=== PATIENT | female | born 1970 | race Caucasian/White ===

== ENCOUNTER → 2016-09-06 | Outpatient (CLI) | payer MEDICARE, OTHER ==
[2016-09-06 11:36] VITALS: BP 151/85; PULSE 80; RESP 14; TEMP 97.6; BMI 43.7
[2016-09-06 12:43] LABS: EKG EKG PERFORMED
[2016-09-06 13:49] LABS: ALT 36 U/L (9-52); AST 19 U/L (14-36); Alkaline Phosphatase 68 U/L (38-126); Anion Gap 10 mmol/L; Blood Urea Nitrogen 13 mg/dL (7-17); Calcium 9.9 mg/dL (8.4-10.2); Carbon Dioxide 29 mmol/L (22-30); Chloride 102 mmol/L (98-107); Cholesterol 175 mg/dL (<200); Glucose 94 mg/dL (74-99); HDL Cholesterol 70 mg/dL (40-60); Iron 108 ug/dL (37-170); Non-African American GFR(MDRD) 41 (>60 ml/min/1.73 sqM); Potassium 4.5 mmol/L (3.5-5.1); Sodium 141 mmol/L (137-145); Total Bilirubin 0.4 mg/dL (0.2-1.3); Total Protein 7.2 g/dL (6.3-8.2); Triglycerides 146 mg/dL (<150)
[2016-09-06 13:59] LABS: % Iron Saturation 33.2 % (20-50); Total Iron Binding Capacity 325 ug/dL (265-497)
[2016-09-06 14:02] LABS: CHCM 33.5; HCT 39.8 % (34.0-46.0); HDW 2.31; HGB 12.9 gm/dL (11.4-16.0); MCH 30.2 pg (25.0-35.0); MCHC 32.4 g/dL (31.0-37.0); Mean Platelet Volume 6.6; RBC 4.29 m/uL (3.80-5.40); RDW 12.1 % (11.5-15.5)
[2016-09-06 14:55] LABS: Vitamin B12 305 pg/mL (239-931)
[2016-09-06 15:53] LABS: Hemoglobin A1C 5.3 % (4.2-6.1)
--- NOTE | 2016-09-10 07:42 | P.PN ---
Progress Note - Text DATE OF CONSULTATION: 09/06/2016 CHIEF COMPLAINT: Initial bariatric assessment. HISTORY OF PRESENT ILLNESS: Earline Bermeo is a 46-year-old female who presents for the first time at the [facility]. With her 5 feet 5-3/4 inch frame, her ideal body weight is 149 pounds. She comes in weighing 268 pounds. She is 119 pounds overweight. Her body mass index is 43.7. She has been undergoing medical supervised weight loss for over several months. Her weight has continued to balloon despite adjustments of her caloric intake as well as increase protein intake. Separately she has gastroesophageal reflux disease. She reports osteoarthritis including of the lower back and bilateral knees. She developed hypertension including obstructive sleep apnea yet to be treated. Now she presents for further evaluation and management. Given the severity of her gastroesophageal reflux disease, she is looking into a Cherise-en-Y gastric bypass. She reports having history of chronic pain and is involved in a pain contract. She also reports a family history of morbid obesity. PAST MEDICAL HISTORY: 1. Chronic pain syndrome. 2. Gastroesophageal reflux disease. 3. Sleep disorder. 4. Scoliosis. 5. Degenerative joint disease of lower back. 6. Bilateral carpal tunnel disease. 7. Depression. PAST SURGICAL HISTORY: 1. Surgical implant of spinal cord stimulator. 2. Sinus surgery. 3. Removal of a lipoma. 4. Left rotator cuff surgery. 5. Upper endoscopy. MEDICATIONS: [place]. ALLERGIES: No latex allergies. SOCIAL HISTORY: No active tobacco use. She does have a previous tobacco use. is at bedside. FAMILY HISTORY: Pertinent for morbid obesity. REVIEW OF SYSTEMS: CONSTITUTIONAL: [place] body weight of 149 pounds for a 5 foot 3/4 inch frame. Present weight of 268 pounds. She is 119 pounds overweight. Body mass index of 43.7. HEENT: No reports of troubles with vision, hearing, or dysphagia. ENDOCRINE: No reports of diabetes or thyroid disorder. CARDIOVASCULAR: History of hypertension. No reports of palpitations or recent heart attack. RESPIRATORY: History of obstructive sleep apnea; however, not currently treated. Denies recent pneumonia. GASTROINTESTINAL: Has gastroesophageal reflux disease and recent upper endoscopy demonstrating hiatal hernia. No reports of dumping syndrome or diarrhea. MUSCULOSKELETAL: Has diffuse osteoarthritis including of the lower back. Has a pain stimulator as a result of lower back. NEURO: No reports of stroke or seizure disorder. PSYCH: History of bipolar disorder including depression. HEMATOLOGIC: No reports of easy bruising or bleeding. DIETARY HISTORY: Recent medical supervised weight loss over 4+ months. No weight loss identified. PHYSICAL EXAM: VITAL SIGNS: 97.6, 80, 14, 151/85, 5 foot 5, 3-1/4 inch frame, 268 pounds, body mass is 43.7. GENERAL: Well-developed pleasant female in no acute distress. HEENT: No scleral icterus. Extraocular movements grossly intact. Moist buccal mucosa. NECK: Supple without lymphadenopathy. CHEST: Nonlabored respirations with equal respirations. CARDIOVASCULAR: Regular rate and rhythm. ABDOMEN: Obese, soft, nontender, nondistended. EXTREMITIES: No cyanosis, or edema. NEURO: No focal or lateralizing signs. Cranial nerves II through XII grossly within normal limits. PSYCH: Appropriate affect. Alert and oriented in person, place, and time. LABS: White count normal at 8. Hemoglobin normal at 12.9. Creatinine elevated at 1.4. HDL elevated at 73, vitamin D low at 27.2. EKG was obtained, however, results are pending. ASSESSMENT: 1. Morbid obesity due to excess calories. 2. Body mass is a 43.7. 3. Gastroesophageal reflux disease. 4. Hypertensive heart disease. 5. Obstructive sleep apnea, untreated. 6. Degenerative joint disease, lower back, requiring spinal pain stimulator. 7. Chronic pain syndrome. 8. History of bipolar disorder. 9. History of depression. 10. Renal insufficiency, creatinine elevated 1.4. 11. Dietary surveillance and counseling. PLAN: 1. I recommend goal protein intake of approximately 65 to 75 grams daily. 2. Also recommend treatment for vitamin D deficiency. 3. Should her EKG come back with abnormalities, then will need a cardiac risk assessment. 4. Will need psych assessment with underlying history of depression, bipolar disorder. 5. Medical risk assessment is advised. 6. Surgical options between sleeve, band and Cherise-en-Y gastric bypass described in detail. She has elected for Cherise-en-Y gastric bypass to address her gastroesophageal reflux disease as well. 7. Referral to bariatric dietitian for gastrectomy-type diet. 8. Recommend follow-up in 3 to 4 weeks for complete review of her bariatric metabolic panel as well. Thank you very much for this kind consultation.
== END | disposition home or self-care (01) ==
LOC: BARWHC3 11:16
PROVIDERS: ATTEND Surgery Plastic and Reconstructive Surgery
DX: Z01.818 Encounter for other preprocedural examination (principal); E66.01 Morbid (severe) obesity due to excess calories; Z68.41 Body mass index [BMI] 40.0-44.9, adult; K21.9 Gastro-esophageal reflux disease without esophagitis; M17.0 Bilateral primary osteoarthritis of knee; M47.896 Other spondylosis, lumbar region; I10 Essential (primary) hypertension; G47.33 Obstructive sleep apnea (adult) (pediatric); G89.4 Chronic pain syndrome; M51.36 Other intervertebral disc degeneration, lumbar region; M41.9 Scoliosis, unspecified; G56.03 Carpal tunnel syndrome, bilateral upper limbs; F32.9 Major depressive disorder, single episode, unspecified; I11.9 Hypertensive heart disease without heart failure; N28.9 Disorder of kidney and ureter, unspecified; Z79.899 Other long term (current) drug therapy
CPT/HCPCS: 84425; 80061; 80053; 82607; 82728; 83036; 82746; 83540; 83550; 84443; 85027; 82306; 93005; 36415; G0463; 99201

== ENCOUNTER → 2016-12-26 | Outpatient (CLI) | payer MEDICARE, OTHER ==
[2016-12-26 13:25] VITALS: BP 147/92; PULSE 87; RESP 16; TEMP 97.3; BMI 43.0
[2016-12-31 07:20] LABS: Anabasine Urine <2.0 ng/mL (<2.0)
--- NOTE | 2017-01-25 10:19 | PN ---
DATE OF SERVICE: 12/26/2016 CHIEF COMPLAINT : Bariatric assessment. HISTORY OF PRESENT ILLNESS: Earline Bermeo is 46-year-old female who has been undergoing weight loss assessment at least from August of 2016. At her height of 5-foot 5-3/4 inch-frame today she comes in weighing 264 pounds. In fact, she has lost 4 pounds in 4 months. Body mass index reduced from 43.7 down to 43. She is still 115 pounds over weight. She has been undergoing medical supervised weight loss for well beyond 6 months with close caloric restriction as well as macro diet evaluation. Separately she does report intermittent right upper quadrant abdominal pain. Now she presents for further evaluation of bariatric procedures particularly for a Cherise-en-Y gastric bypass. She does have history of previous tobacco exposure and now she also presents for follow up as well. As a result of her morbid obesity, she has developed obstructive sleep apnea including hypertension as well as severity of lower back pain as well as bilateral knee pain. PAST MEDICAL HISTORY: 1. Chronic pain syndrome. 2. Gastroesophageal reflux disease. 3. Sleep disorder. 4. Scoliosis. 5. Degenerative joint disease of lower back. 6. Bilateral carpal tunnel disease. 7. Depression. PAST SURGICAL HISTORY: 1. Surgical implant of spinal cord stimulator. 2. Sinus surgery. 3. Removal of a lipoma. 4. Left rotator cuff surgery. 5. Upper endoscopy. MEDICATIONS: [place]. ALLERGIES: No latex allergies. SOCIAL HISTORY: No active tobacco use. She does have a previous tobacco use. is at bedside. FAMILY HISTORY: Pertinent for morbid obesity. REVIEW OF SYSTEMS: CONSTITUTIONAL: [place] body weight of 149 pounds. Present weight of 264 pounds. Weight loss of 4 pounds. Body mass index reduced from 43.7 down to 43. She is still 115 pounds overweight. HEENT: No reports of troubles with vision, hearing, or dysphagia. ENDOCRINE: No reports of diabetes or thyroid disorder. CARDIOVASCULAR: History of hypertension. No reports of palpitations or recent heart attack. RESPIRATORY: History of obstructive sleep apnea; however, not currently treated. Denies recent pneumonia. GASTROINTESTINAL: Has gastroesophageal reflux disease and recent upper endoscopy demonstrating hiatal hernia. No reports of dumping syndrome or diarrhea. MUSCULOSKELETAL: Has diffuse osteoarthritis including of the lower back. Has a pain stimulator as a result of lower back. NEURO: No reports of stroke or seizure disorder. PSYCH: History of bipolar disorder including depression. HEMATOLOGIC: No reports of easy bruising or bleeding. PHYSICAL EXAM: VITAL SIGNS: 97.3, 87, 16, 147/92, 5 feet 5-3/4 inch frame, 264 pounds. Body mass index of 43. ABDOMEN: Soft, tenderness noted in the right upper quadrant. No gross peritoneal signs. GENERAL: Well-developed pleasant female in no acute distress. HEENT: No scleral icterus. Extraocular movements grossly intact. Moist buccal mucosa. NECK: Supple without lymphadenopathy. CHEST: Nonlabored respirations with equal respirations. CARDIOVASCULAR: Regular rate and rhythm. EXTREMITIES: No cyanosis, or edema. NEURO: No focal or lateralizing signs. Cranial nerves II through XII grossly within normal limits. PSYCH: Appropriate affect. Alert and oriented in person, place, and time. LABS: Previous metabolic panel was reviewed consistent with hemoglobin normal 12.9. Creatinine was elevated at 1.4 HDL was elevated at 70. Vitamin D was mildly low at 27.2. ASSESSMENT: 1. Morbid obesity due to excess calories. 2. Body mass index reduced from 43.7 down to 43. 3. Obstructive sleep apnea. 4. Hypertensive heart disease. 5. Renal insufficiency secondary to hypertensive disease. 6. History of tobacco use. 7. Vitamin D deficiency. 8. History of chronic pain. 9. History of spine stimulator. PLAN: 1. I recommend a urine cotinine test. 2. Strict tobacco cessation was advised for at least 4 weeks preop. 3. We have gone over benefits and risks of her choice of a gastric bypass. A second generation bariatric consent form was reviewed including risk of bleeding , infection, nutritional deficiencies as well as leaks. 4. Inpatient hospitalization advised over 2 night. 5. DVT prophylaxis. 6. Antibiotic prophylaxis. 7. All of her questions were answered for which I have recommended close monitoring. 8. Again, she is to have urine cotinine test prior to proceeding with her procedure. ADDENDUM: Urine cotinine was indeed positive of recent tobacco use consistent with passive abstinence of 2 weeks. Recommend repeat after weeks of tobacco cessation. [facility]
== END | disposition home or self-care (01) ==
LOC: BARWHC3 12:12
PROVIDERS: ATTEND Surgery Plastic and Reconstructive Surgery
DX: Z01.818 Encounter for other preprocedural examination (principal); I10 Essential (primary) hypertension
CPT/HCPCS: G0480; G0463; 80323; 99211

== ENCOUNTER → 2016-12-26 | Outpatient (CLI) | payer MEDICARE, OTHER | END | disposition home or self-care (01) | LOC: LABWHC1 14:20 | PROVIDERS: ATTEND Surgery Plastic and Reconstructive Surgery | DX: Z53.9 Procedure and treatment not carried out, unspecified reason (principal) ==

== ENCOUNTER → 2016-12-31 | Outpatient (CLI) | payer MEDICARE, OTHER ==
[2016-12-31 13:01] VITALS: BMI 43.8
[2017-01-03 11:55] LABS: Anabasine Urine <2.0 ng/mL (<2.0)
== END | disposition home or self-care (01) ==
LOC: BARWHC3 09:14
PROVIDERS: ATTEND Surgery Plastic and Reconstructive Surgery
DX: E66.01 Morbid (severe) obesity due to excess calories (principal)
CPT/HCPCS: 97804; G0480; 80323

== ENCOUNTER → 2017-01-16 | Outpatient (CLI) | payer MEDICARE, OTHER ==
[2017-01-16 16:46] LABS: Basophils % (A) 0 %; CH 30.7; Eosinophils # (A) 0.1 k/uL (0-0.7); Eosinophils % (A) 1 %; HCT 39.5 % (34.0-46.0); HDW 2.34; HGB 13.1 gm/dL (11.4-16.0); Luc # (Auto) 0.22; Luc % (Auto) 2; Lymphocytes # (A) 3.2 k/uL (1.0-4.8); Lymphocytes % (A) 33 %; MCH 31.1 pg (25.0-35.0); MCHC 33.2 g/dL (31.0-37.0); MCV 93.6 fL (80.0-100.0); Mean Platelet Volume 6.6; Monocytes # (A) 0.4 k/uL (0-1.0); Monocytes % (A) 5 %; Neutrophils # (A) 5.6 k/uL (1.3-7.7); Neutrophils % (A) 58 %; RBC 4.22 m/uL (3.80-5.40); RDW 12.7 % (11.5-15.5); WBC 9.7 k/uL (3.8-10.6); WBC (Perox) 10.03
[2017-01-16 16:54] LABS: ALT 25 U/L (9-52); AST 17 U/L (14-36); Alkaline Phosphatase 69 U/L (38-126); Anion Gap 10 mmol/L; Blood Urea Nitrogen 14 mg/dL (7-17); Calcium 9.7 mg/dL (8.4-10.2); Carbon Dioxide 24 mmol/L (22-30); Chloride 106 mmol/L (98-107); Glucose 98 mg/dL (74-99); Non-African American GFR(MDRD) >60 (>60 ml/min/1.73 sqM); Potassium 4.1 mmol/L (3.5-5.1); Sodium 140 mmol/L (137-145); Total Bilirubin 0.4 mg/dL (0.2-1.3); Total Protein 7.4 g/dL (6.3-8.2)
== END | disposition home or self-care (01) ==
LOC: LABPAT 16:18
PROVIDERS: ATTEND Surgery Plastic and Reconstructive Surgery
DX: Z01.812 Encounter for preprocedural laboratory examination (principal)
CPT/HCPCS: 80053; 85025

== ENCOUNTER → 2017-01-16 | Outpatient (CLI) | payer MEDICARE, OTHER ==
[2017-01-16 15:21] VITALS: BMI 43.5
[2017-01-16 15:27] VITALS: BP 119/84; PULSE 60; RESP 16; TEMP 97.7
--- NOTE | 2017-01-30 14:52 | P.PN ---
Progress Note - Text DATE OF SERVICE: 01/16/2017 CHIEF COMPLAINT : Bariatric assessment. HISTORY OF PRESENT ILLNESS: Earline Bermeo is 46-year-old female who has undergone weight loss assessment from August of 2016. At her height of 5- foot 5-3/4 inch-frame today she comes in weighing 267 pounds. Body mass index is now 43.6. She is 118 pounds over weight. She has gained 3 pounds in 3 weeks. Today she comes in with worsening right upper quadrant pain despite having an ultrasound of the gallbladder that was negative for gallstones. She also reports fatty food intolerance. She has abstained from tobacco for at least 4 weeks. She has elected for a Cherise-en-Y gastric bypass. PAST MEDICAL HISTORY: 1. Chronic pain syndrome. 2. Gastroesophageal reflux disease. 3. Sleep disorder. 4. Scoliosis. 5. Degenerative joint disease of lower back. 6. Bilateral carpal tunnel disease. 7. Depression. PAST SURGICAL HISTORY: 1. Surgical implant of spinal cord stimulator. 2. Sinus surgery. 3. Removal of a lipoma. 4. Left rotator cuff surgery. 5. Upper endoscopy. MEDICATIONS: [place]. ALLERGIES: No latex allergies. SOCIAL HISTORY: No active tobacco use. She does have a previous tobacco use. is at bedside. FAMILY HISTORY: Pertinent for morbid obesity. REVIEW OF SYSTEMS: CONSTITUTIONAL: At her height of 5-foot 5-3/4 inch-frame today she comes in weighing 267 pounds. Body mass index is now 43.6. She is 118 pounds over weight. She has gained 3 pounds in 3 weeks. HEENT: No reports of troubles with vision, hearing, or dysphagia. ENDOCRINE: No reports of diabetes or thyroid disorder. CARDIOVASCULAR: History of hypertension. No reports of palpitations or recent heart attack. RESPIRATORY: History of obstructive sleep apnea; however, not currently treated. Denies recent pneumonia. GASTROINTESTINAL: Has gastroesophageal reflux disease and recent upper endoscopy demonstrating hiatal hernia. No reports of dumping syndrome or diarrhea. Has severe fatty food intolerance. MUSCULOSKELETAL: Has diffuse osteoarthritis including of the lower back. Has a pain stimulator as a result of lower back. NEURO: No reports of stroke or seizure disorder. PSYCH: History of bipolar disorder including depression. HEMATOLOGIC: No reports of easy bruising or bleeding. PHYSICAL EXAM: VITAL SIGNS: 5 feet 5-3/4 inch frame, 267 pounds. Body mass index of 43.6. Vital Signs Temp 97.7 F 01/16/17 15:19 Pulse 60 01/16/17 15:19 Resp 16 01/16/17 15:19 BP 119/84 01/16/17 15:19 Pulse Ox ABDOMEN: Soft, tenderness noted in the right upper quadrant. No palpable incisional hernia. GENERAL: Well-developed pleasant female in no acute distress. HEENT: No scleral icterus. Extraocular movements grossly intact. Moist buccal mucosa. NECK: Supple without lymphadenopathy. CHEST: Nonlabored respirations with equal respirations. CARDIOVASCULAR: Regular rate and rhythm. EXTREMITIES: No cyanosis, or edema. NEURO: No focal or lateralizing signs. Cranial nerves II through XII grossly within normal limits. PSYCH: Appropriate affect. Alert and oriented in person, place, and time. ASSESSMENT: 1. Morbid obesity due to excess calories. 2. Body mass index 43.6. 3. Obstructive sleep apnea. 4. Hypertensive heart disease. 5. Renal insufficiency secondary to hypertensive disease. 6. History of tobacco use in remission. 7. Vitamin D deficiency. 8. History of chronic pain. 9. History of spine stimulator. 10. Chronic cholecystitis. 11. Right upper quadrant pain. PLAN: 1. She is completing a tobacco screen. 2. She has severe right upper quadrant pain. Recommend cholecystectomy for chronic cholecystitis. 3. An 8-page second generation bariatric consent form was reviewed in detail including risks of leak, bleeding, infection, and stricture. He main concern today includes activities which may resumed after 4 to 6 weeks of recovery. Also prescription for the [facility] was described. 4. Inpatient hospitalization advised over 2 night. 5. DVT prophylaxis. 6. Antibiotic prophylaxis.
== END | disposition home or self-care (01) ==
LOC: BARWHC3 15:06
PROVIDERS: ATTEND Surgery Plastic and Reconstructive Surgery
DX: Z01.818 Encounter for other preprocedural examination (principal); E66.01 Morbid (severe) obesity due to excess calories; G47.33 Obstructive sleep apnea (adult) (pediatric); I11.9 Hypertensive heart disease without heart failure; N28.9 Disorder of kidney and ureter, unspecified; E55.9 Vitamin D deficiency, unspecified; R10.11 Right upper quadrant pain; G89.4 Chronic pain syndrome; K21.9 Gastro-esophageal reflux disease without esophagitis; M41.9 Scoliosis, unspecified; F32.9 Major depressive disorder, single episode, unspecified; Z68.41 Body mass index [BMI] 40.0-44.9, adult
CPT/HCPCS: 99211

== ENCOUNTER 2017-02-11 07:22 | Inpatient (IN) | payer MEDICARE, OTHER ==
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
[~2017-02-11 07:22] MED LIST: ACETAMINOPHEN IV (For NPO) 1,000 MG in EMPTY BAG 1 BAG IVPB ONE; CHLORHEXIDINE GLUCONATE 15 ML CUP MUCOUS MEM ONE; DEXAMETHASONE SOD PHOSPHATE 10 MG/ML 1 ML VIAL IV ONE; ENOXAPARIN 40 MG/0.4 ML SYRINGE SQ STA; HYDROmorphone 1 MG/ML 1 ML SYRINGE IVP PRN; LIDOCAINE 1% 20 ML VIAL (10MG/ML) FOR IV START INTRADERMA PRN; PANTOPRAZOLE 40 MG/10 ML VIAL IV STA; SCOPOLAMINE 1.5MG/72HR PATCH TRANSDERM ONE; ceFAZolin 3 GM in SODIUM CHLORIDE 0.9% 100 ML IVPB ONE
[2017-02-11] MEDS: LACTATED RINGERS 1,000 ML IV SCH (07:58)
[2017-02-11] MEDS: ONDANSETRON 4 MG/2 ML VIAL IVP ONE ×2 (08:08→12:01)
--- NOTE | 2017-02-11 08:52 | P.HPADDEND ---
H&P Addendum H&P Addendum Date: 02/11/17 Patient comes in with history of persistent right upper quadrant abdominal pain especially worse after fatty greasy foods. We'll proceed with cholecystectomy with gastric bypass. All questions were answered and addressed with family.
[2017-02-11] MEDS ORDERED: BUPIVACAIN-EPI 0.5%-1:200,000 30 ML VIAL SQ ONE (09:39)
[2017-02-11] MEDS ORDERED: LACTATED RINGERS 1,000 ML IV ONE (10:02)
[2017-02-11] MEDS ORDERED: ACETAMINOPHEN IV (For NPO) 1,000 MG in EMPTY BAG 1 BAG IVPB ONE (12:03)
[2017-02-11] MEDS ORDERED: NALOXONE 0.4 MG/ML 1 ML VIAL IV PRN (12:03)
[2017-02-11] MEDS ORDERED: SIMETHICONE 40 MG/0.6 ML DROPS 2,000 MG/30 ML BOTTLE PO PRN (12:03)
[2017-02-11] MEDS ORDERED: HYOSCYAMINE ORAL DROPS 1.875 MG/15 ML BOTTLE PO PRN (12:03)
[2017-02-11] MEDS ORDERED: diphenhydrAMINE 50 MG/ML 1 ML VIAL IVP PRN (12:03)
[2017-02-11] MEDS ORDERED: diphenhydrAMINE 50 MG/ML 1 ML VIAL IVP ONE (12:05)
[2017-02-11] MEDS ORDERED: PROMETHAZINE INJ 25 MG/ML 1 ML VIAL IVPB ONE (12:10)
--- NOTE | 2017-02-11 12:53 | P.OP ---
Date of Procedure: 02/11/17 Preoperative Diagnosis: Postoperative Diagnosis: Procedure(s) Performed: Implants: Indications for Procedure: Operative Findings: Description of Procedure: SURGEON: LEANA TAPIA MD MEDICAL FRONT DESK COORDINATOR: 1. JENIFER PATEL 2. RIOS DEVRIES PRE-OPERATIVE DIAGNOSES: 1. Morbid obesity due to excess calories. 2. Body mass index 43.6. 3. Obstructive sleep apnea. 4. Hypertensive heart disease. 5. Renal insufficiency secondary to hypertensive disease. 6. History of tobacco use in remission. 7. Vitamin D deficiency. 8. History of chronic pain. 9. History of spine stimulator. 10. Chronic cholecystitis. 11. Right upper quadrant pain. POSTOPERATIVE DIAGNOSES: 1. Morbid obesity due to excess calories. 2. Body mass index 43.6. 3. Obstructive sleep apnea. 4. Hypertensive heart disease. 5. Renal insufficiency secondary to hypertensive disease. 6. History of tobacco use in remission. 7. Vitamin D deficiency. 8. History of chronic pain. 9. History of spine stimulator. 10. Chronic cholecystitis. 11. Right upper quadrant pain. OPERATION: 1. Laparoscopic Cherise-en-Y gastric bypass, 125 cm antecolic antegastric Cherise limb with 25 mm Orvil. 3. Intraoperative esophagogastrojejunoscopy. ANESTHESIA: General with 30 mL 0.50% Marcaine with epinephrine. ESTIMATED BLOOD LOSS: 20 mL SPECIMENS SENT: None. COMPLICATIONS: None. INDICATIONS: Earline Bermeo is 46-year-old female who has undergone weight loss assessment from August of 2016. At her height of 5-foot 5-3/4 inch-frame today she comes in weighing 260 pounds. Body mass index is now down from 43.6 to 42.2. She is 111 pounds over weight. She has lost 7 pounds from a two-week low-calorie high-protein diet. She has developed obstructive sleep apnea, osteoarthritis of the hips and knees, and hypertension from her obesity. She comes in with history of right upper quadrant pain exacerbated by fatty foods. She has abstained from tobacco for over 4 weeks. She has elected for a Cherise-en- Y gastric bypass. Benefits and risks of the procedure, including increased risk for leak, surgical complications, nausea, vomiting, gastrointestinal anastomotic stricture, were described at length via a second-generation bariatric consent form. She had given informed consent. DESCRIPTION: The patient was brought into the operating room theater. She was placed on a split leg table. Preoperatively she had received Lovenox subcutaneously for DVT prophylaxis. Additionally she had undergone Peridex oral solution as an oral decontaminant. After general induction, the abdomen was prepped and draped in standard sterile fashion. A Sanders catheter was placed. At her height of approximately 5 feet 5.75 inch, her height from her xiphoid to her umbilicus was 18 cm. Initial attention was brought along the left upper quadrant, whereby a zero-degree 10 mm trocar laparoscopic trocar entry was performed at the left upper abdomen. The abdominal cavity was entered. A 12-mm port was placed along the left lateral abdominal wall. Next a 12 mm port was placed approximately 15 cm distal and off to the left of midline for placement of the camera port. Additional two 12 mm trocars were placed along the right upper abdomen at the right costal margin including the right midclavicular line in a V-type fashion. Diagnostic laparoscopy demonstrated no injury to the bowel, viscera or mesentery. No abdominal adhesions were identified. The small bowel was unremarkable in appearance. The liver surface was smooth including along the edge was sharp consistent with a 2 week high-protein low caloric diet. No large diaphragmatic hiatal hernia was identified. The ligament of Treitz was identified and measured 60 cm antegrade. The jejunum was divided at this point. The biliopancreatic limb was held in place by the teacher's assistant. The blind jejunal limb was marked using a Wade drain and 2-0 silk Endo Stitch.. The Cherise limb was then measured 125 cm distally. Her mesentery was short preventing tension of the jejunojejunostomy at 150 cm Cherise limb. At 125 cm along the anterior mesenteric border of the Cherise limb, a jejunojejunostomy was proposed whereby enterotomies were created along the biliopancreatic limb including the Cherise limb. A bidirectional fire was performed whereby from the surgeon's end a 45 mm mata load was fired. From the teacher's assistant's end a separate 45 mm firing had occurred, creating a 90 mm jejunojejunostomy. The defect was then closed using a 60 mm mata load. The jejunojejunostomy was found to be hemostatic. Attention was now brought to the creation of the gastrojejunostomy. The transverse mesocolon was cleaved using a Sonicision. Placement of a medium-sized Angie liver retractor was used to elevate the left lobe of the liver for greater visualization of the upper abdomen, particularly the superior pole of the stomach. The Angie liver retractor was held in place using an iron hospitality internship. Along the lesser curvature of the stomach between the second and third veins, dissection was made along the retrogastric space to allow first firing of the Covidien Tri-Staple purple load. Once adequately mobilized, an initial firing using a 60 mm purple load was performed perpendicular to the lesser curvature of the stomach. To completely divide the pouch from the remnant stomach, two 60 mm purple loads were fired towards the angle of His followed by a 45 mm purple load. Care was taken to avoid any creation of gastric gastric fistulas. Once the stomach was completely divided, attention was brought to placement of the Orvil. The patient was Mallampati 1. Using the help of the nurse sports editor, a 25 mm Orvil was placed along the posterior oropharynx and advanced into the pouch. The Orvil was placed anterior to the staple line. A gastrotomy was created for removal of the tubing. Once the sutures were encountered these were divided in the tubing and Orvil were disconnected. Using aseptic technique all ports and instruments and gloves were exchanged after handling of the Orvil tubing. Patient was then placed in reverse Trendelenburg. As the Orvil had been placed, the blind jejunal limb was brought proximally into the upper abdomen. No tension or torsion was found upon the Cherise limb, which was brought along the upper abdomen. The blind jejunal limb was opened using a cordless Harmonic scalpel. The 25mm EEA stapler was brought through the anterior lateral port site from the teacher's assistant's end. The EEA stapler was brought through the open jejunal limb and its needle was deployed at the antimesenteric border where the anvil were mated for approximately 1 minute upon firing. The stapler was removed. Donuts were found to be intact. The open jejunal limb defect was closed using a 60 mm mata load. No redundant jejunal limb was allow to decrease risk of candycane syndrome. Closure of the mesenteric defects was performed, initially of the Lugo defect using 2-0 silk on an Endo Stitch and a Lapra-Ty. Attention was brought to closure of the jejunojejunostomy mesenteric defect, also closed in a similar fashion. I then went to the head of the bed to perform the esophagogastrojejunoscopy and a leak test. An Olympus gastroscope was passed along the posterior oropharynx. The scope was passed down to the proximal portion of the pouch, whereby no active bleeding was encountered. Excellent visualization of the gastrojejunostomy anastomosis, including the Cherise limb was encountered for which endoscopic image was obtained. The anastomosis was found to be patent. The gastrointestinal tract was desufflated. No evidence of intraoperative leak was encountered. I then went back to the bedside of the patient, whereby with coordinated effort of the teacher's assistant, the fluid from the leak test was aspirated from the upper abdominal cavity. Tisseel was placed circumferentially over the anastomosis. Attention was brought to her gallbladder whereby she had redundancy of the gallbladder infundibulum including less than ideal visualization of the cystic structures. For concern and to prevent injury, her cholecystectomy was deferred. All instruments and pneumoperitoneum were evacuated from the abdominal cavity. The port correlating with the EEA stapler device was copiously irrigated with 3 L of warm normal saline solution. The fascial defect was closed using a Papito Siddiqui and 0 Vicryl in a [id number] fashion. The incisions were also cleansed with hydrogen peroxide. The rest of incisions were reapproximated using 3-0 Vicryl for deep subcutaneous tissue and dermis followed by 4-0 Monocryl in a running subcuticular fashion. Dermabond was applied to the skin. At the end of the procedure, needle, sponge and instrument count had been verified correct by the neurosurgical nurse. She had tolerated the procedure well and was taken to the postanesthesia unit in stable condition. FINDINGS: 1. 25 mm Orvil for gastrojejunal anastomosis. 2. Negative intraoperative esophagogastrojejunoscopy leak test. 3. Approximately 3 -60mm purple and 1 - 45 mm purple staplers used for creation of her gastric pouch. 4. Cherise limb of 125 cm, shortened from 150 cm to avoid tension of her jejunojejunostomy. 5. Length of xiphoid to umbilicus of 18 cm
[2017-02-11 14:51] VITALS: BMI 40.8
[2017-02-11] MEDS: ALBUTEROL NEBULIZED 2.5 MG/3 ML INHALATION SCH ×2 (15:57→19:45)
[2017-02-11] MEDS: HYDROmorphone 1 MG/ML 1 ML SYRINGE IVP PRN ×3 (16:14→23:48)
[2017-02-11] MEDS ORDERED: TRIMETHOBENZAMIDE 100 MG/ML 2 ML VIAL IM STA (18:09)
[2017-02-11] MEDS ORDERED: SCOPOLAMINE 1.5MG/72HR PATCH TRANSDERM STA (18:50)
--- NOTE | 2017-02-11 19:18 | P.PN ---
Progress Note - Text Patient seen and evaluated on the floor. She had severe postoperative nausea and vomiting. She did not receive a patch this morning. She had hematemesis as a result. Recommend simethicone including Levsin. Also recommend Tigan IM and scopolamine patch. Ice chips in the interim for severe postoperative nausea and vomiting.
[2017-02-11] MEDS: AMPICILLIN-SULBACTAM 3 GM in SODIUM CHLORIDE 0.9% 100 ML IVPB SCH (19:23)
[2017-02-11] MEDS ORDERED: DEXAMETHASONE SOD PHOSPHATE 10 MG/ML 1 ML VIAL IV STA (19:59)
[2017-02-11] MEDS: 0.9% NACL WITH KCL 20 MEQ/L 1,000 ML IV SCH ×2 (20:44)
[2017-02-11] MEDS: METOCLOPRAMIDE 5 MG/ML 2 ML VIAL IVP SCH (23:02)
[2017-02-11] MEDS: HYOSCYAMINE ORAL DROPS 1.875 MG/15 ML BOTTLE PO SCH (23:06)
[2017-02-11] MEDS: SIMETHICONE 40 MG/0.6 ML DROPS 2,000 MG/30 ML BOTTLE PO SCH (23:17)
[2017-02-12 00:19] LABS: Basophils % (A) 0 %; CH 30.8; CHCM 32.4; Eosinophils % (A) 0 %; HCT 35.1 % (34.0-46.0); HGB 11.1 gm/dL (11.4-16.0); Luc # (Auto) 0.03; Luc % (Auto) 0; Lymphocytes # (A) 0.5 k/uL (1.0-4.8); Lymphocytes % (A) 4 %; MCH 30.3 pg (25.0-35.0); MCHC 31.7 g/dL (31.0-37.0); MCV 95.5 fL (80.0-100.0); Monocytes # (A) 0.3 k/uL (0-1.0); Monocytes % (A) 2 %; Neutrophils # (A) 12.1 k/uL (1.3-7.7); Neutrophils % (A) 93 %; RBC 3.67 m/uL (3.80-5.40); RDW 12.9 % (11.5-15.5); WBC (Perox) 13.36
[2017-02-12 00:29] LABS: ALT 41 U/L (9-52); AST 31 U/L (14-36); Alkaline Phosphatase 58 U/L (38-126); Anion Gap 11 mmol/L; Blood Urea Nitrogen 16 mg/dL (7-17); Calcium 8.5 mg/dL (8.4-10.2); Carbon Dioxide 19 mmol/L (22-30); Chloride 105 mmol/L (98-107); Glucose 218 mg/dL (74-99); Non-African American GFR(MDRD) >60 (>60 ml/min/1.73 sqM); Potassium 4.9 mmol/L (3.5-5.1); Sodium 135 mmol/L (137-145); Total Bilirubin 0.4 mg/dL (0.2-1.3); Total Protein 6.1 g/dL (6.3-8.2)
[2017-02-12] MEDS: AMPICILLIN-SULBACTAM 3 GM in SODIUM CHLORIDE 0.9% 100 ML IVPB SCH (02:00)
[2017-02-12] MEDS: HYDROmorphone 1 MG/ML 1 ML SYRINGE IVP PRN (02:54)
[2017-02-12] MEDS: 0.9% NACL WITH KCL 20 MEQ/L 1,000 ML IV SCH ×2 (02:54→05:45)
[2017-02-12] MEDS: METOCLOPRAMIDE 5 MG/ML 2 ML VIAL IVP SCH ×3 (05:49→16:56)
[2017-02-12] MEDS: HYOSCYAMINE ORAL DROPS 1.875 MG/15 ML BOTTLE PO SCH ×3 (05:52→16:56)
[2017-02-12] MEDS: SIMETHICONE 40 MG/0.6 ML DROPS 2,000 MG/30 ML BOTTLE PO SCH ×3 (05:53→16:56)
[2017-02-12] MEDS: LACTATED RINGERS 1,000 ML IV SCH (06:46)
[2017-02-12 07:32] LABS: Basophils % (A) 0 %; CH 30.7; CHCM 32.7; Eosinophils % (A) 0 %; HCT 31.4 % (34.0-46.0); HDW 2.33; HGB 10.1 gm/dL (11.4-16.0); Luc # (Auto) 0.05; Luc % (Auto) 0; Lymphocytes # (A) 0.8 k/uL (1.0-4.8); Lymphocytes % (A) 6 %; MCH 30.3 pg (25.0-35.0); MCHC 32.1 g/dL (31.0-37.0); MCV 94.5 fL (80.0-100.0); Mean Platelet Volume 6.9; Monocytes # (A) 0.6 k/uL (0-1.0); Monocytes % (A) 5 %; Neutrophils # (A) 10.4 k/uL (1.3-7.7); Neutrophils % (A) 88 %; RBC 3.32 m/uL (3.80-5.40); RDW 12.9 % (11.5-15.5); WBC 11.8 k/uL (3.8-10.6); WBC (Perox) 12.04
[2017-02-12 07:49] LABS: Anion Gap 8 mmol/L; Blood Urea Nitrogen 14 mg/dL (7-17); Calcium 8.3 mg/dL (8.4-10.2); Carbon Dioxide 24 mmol/L (22-30); Chloride 106 mmol/L (98-107); Magnesium 1.9 mg/dL (1.6-2.3); Non-African American GFR(MDRD) >60 (>60 ml/min/1.73 sqM); Phosphorous 2.4 mg/dL (2.5-4.5); Potassium 4.6 mmol/L (3.5-5.1); Sodium 138 mmol/L (137-145)
[2017-02-12] MEDS ORDERED: ESOMEPRAZOLE 20 MG in SODIUM CHLORIDE 0.9% 50 ML IVPB SCH (09:00)
[2017-02-12] MEDS ORDERED: PANTOPRAZOLE 40 MG/10 ML VIAL IV SCH (09:00)
[2017-02-12] MEDS: ALBUTEROL NEBULIZED 2.5 MG/3 ML INHALATION SCH ×4 (09:14→21:25)
[2017-02-12] MEDS: ONDANSETRON 4 MG/2 ML VIAL IVP PRN ×3 (09:30→21:47)
[2017-02-12] MEDS ORDERED: NALOXONE 0.4 MG/ML 1 ML VIAL IV PRN (10:28)
[2017-02-12] MEDS: ENOXAPARIN 40 MG/0.4 ML SYRINGE SQ SCH (10:40)
[2017-02-12] MEDS ORDERED: DEXAMETHASONE SOD PHOSPHATE 10 MG/ML 1 ML VIAL IV STA (10:43)
[2017-02-12] MEDS ORDERED: TRIMETHOBENZAMIDE 100 MG/ML 2 ML VIAL IM STA (10:44)
[2017-02-12] MEDS: fentaNYL PCA 300 MCG/30 ML SYRINGE IV PRN ×2 (11:34→22:20)
--- NOTE | 2017-02-12 13:27 | P.PN ---
Progress Note - Text Patient seen and evaluated. Overnight events including severe post-op nausea and vomiting with resultant hematemesis discussed with covering provider, Dr. Escobar. Patient still reports nausea. Vital signs are stable. Recommend discontinuing dilaudid and switch to fentanyl. Correction of electrolytes. Continue on NPO for now. Additional anti-emetics.
[2017-02-12] MEDS: 1: MVI, ADULT NO.4 WITH VIT K 10 ML, THIAMINE 100 MG, FOLIC ACID 1 MG, POTASSIUM CHLORID IV SCH ×6 (16:50)
[2017-02-12] MEDS ORDERED: SODIUM CHLORIDE 0.9% 1,000 ML BAG ONE (16:50)
[2017-02-13] MEDS: SIMETHICONE 40 MG/0.6 ML DROPS 2,000 MG/30 ML BOTTLE PO SCH ×4 (00:04→17:52)
[2017-02-13] MEDS: HYOSCYAMINE ORAL DROPS 1.875 MG/15 ML BOTTLE PO SCH ×4 (00:05→17:52)
[2017-02-13] MEDS: METOCLOPRAMIDE 5 MG/ML 2 ML VIAL IVP SCH ×4 (00:06→17:53)
[2017-02-13] MEDS: 1: MVI, ADULT NO.4 WITH VIT K 10 ML, THIAMINE 100 MG, FOLIC ACID 1 MG, POTASSIUM CHLORID IV SCH ×12 (04:51→05:00)
[2017-02-13] MEDS ORDERED: SODIUM CHLORIDE 0.9% 1,000 ML BAG ONE (04:51)
[2017-02-13] MEDS: LACTATED RINGERS 1,000 ML IV SCH (06:23)
[2017-02-13 07:17] LABS: CH 30.9; CHCM 32.8; HDW 2.31; MCH 30.7 pg (25.0-35.0); MCHC 32.4 g/dL (31.0-37.0); MCV 94.8 fL (80.0-100.0); Mean Platelet Volume 7.4; RBC 2.63 m/uL (3.80-5.40); RDW 13.3 % (11.5-15.5); WBC 10.7 k/uL (3.8-10.6)
[2017-02-13 07:25] LABS: HGB 8.1 gm/dL (11.4-16.0)
[2017-02-13 07:37] LABS: Anion Gap 5 mmol/L; Blood Urea Nitrogen 14 mg/dL (7-17); Calcium 8.5 mg/dL (8.4-10.2); Carbon Dioxide 25 mmol/L (22-30); Chloride 107 mmol/L (98-107); Glucose 100 mg/dL (74-99); Non-African American GFR(MDRD) >60 (>60 ml/min/1.73 sqM); Potassium 4.4 mmol/L (3.5-5.1); Sodium 137 mmol/L (137-145)
[2017-02-13 07:39] VITALS: TEMP 98.2
[2017-02-13] MEDS ORDERED: BISACODYL 5 MG TABLET.DR PO PRN (08:00)
[2017-02-13] MEDS: ALBUTEROL NEBULIZED 2.5 MG/3 ML INHALATION SCH ×3 (08:50→15:28)
[2017-02-13] MEDS: ENOXAPARIN 40 MG/0.4 ML SYRINGE SQ SCH (09:22)
--- NOTE | 2017-02-13 10:23 | P.PN ---
Progress Note - Text Patient reevaluated this evening. Her nausea is improving. No further vomiting. She reports appetite. We'll start bariatric liquid in the morning.
[2017-02-13] MEDS ORDERED: BISACODYL 10 MG SUPP RECTAL STA (10:38)
[2017-02-13] MEDS: SODIUM PHOSPHATE 10 MMOL in SODIUM CHLORIDE 0.9% 250 ML IVPB SCH ×2 (12:01→15:20)
[2017-02-13] MEDS: fentaNYL PCA 300 MCG/30 ML SYRINGE IV PRN ×2 (13:44→18:11)
[2017-02-13 15:02] LABS: CH 30.3; CHCM 32.8; HCT 24.2 % (34.0-46.0); HDW 2.38; HGB 8.2 gm/dL (11.4-16.0); MCH 31.5 pg (25.0-35.0); MCHC 33.8 g/dL (31.0-37.0); MCV 93.1 fL (80.0-100.0); Mean Platelet Volume 7.2; RDW 12.8 % (11.5-15.5); WBC 10.8 k/uL (3.8-10.6)
[2017-02-13 18:44] VITALS: BP 135/66; PULSE 78; RESP 18
== END 2017-02-13 20:01 | disposition home or self-care (01) | DRG 620 ==
LOC: 2ORWHC 07:22 → 3SUR 11:50
PROVIDERS: ADMIT Surgery Plastic and Reconstructive Surgery; ATTEND Surgery Plastic and Reconstructive Surgery
PROC: 0DJ08ZZ Inspection of Upper Intestinal Tract, Via Natural or Artificial Opening Endoscopic (ICD-10-PCS; 2017-02-11)
PROC: 0D164ZA Bypass Stomach to Jejunum, Percutaneous Endoscopic Approach (ICD-10-PCS; principal; 2017-02-11 08:45)
DX: E66.01 Morbid (severe) obesity due to excess calories (principal); K92.0 Hematemesis; I11.9 Hypertensive heart disease without heart failure; K81.1 Chronic cholecystitis; G62.9 Polyneuropathy, unspecified; M41.9 Scoliosis, unspecified; E55.9 Vitamin D deficiency, unspecified; G47.33 Obstructive sleep apnea (adult) (pediatric); G89.4 Chronic pain syndrome; K21.9 Gastro-esophageal reflux disease without esophagitis; M16.0 Bilateral primary osteoarthritis of hip; N28.9 Disorder of kidney and ureter, unspecified; F32.9 Major depressive disorder, single episode, unspecified; G56.03 Carpal tunnel syndrome, bilateral upper limbs; M47.9 Spondylosis, unspecified; M51.36 Other intervertebral disc degeneration, lumbar region; R11.2 Nausea with vomiting, unspecified; M17.0 Bilateral primary osteoarthritis of knee; Z68.41 Body mass index [BMI] 40.0-44.9, adult; Z79.899 Other long term (current) drug therapy; Z87.891 Personal history of nicotine dependence
CPT/HCPCS: 80048; 80051; 80053; 81025; 82310; 82565; 83735; 84100; 84484; 84520; 85025; 85027; 86850; 86900; 86901; 93005; 94640; 94760; 94762

== ENCOUNTER → 2017-02-15 | Outpatient (CLI) | payer MEDICARE, OTHER ==
[2017-02-15 12:15] VITALS: BP 118/70; PULSE 85; TEMP 98.2; BMI 42.4
--- NOTE | 2017-03-10 13:40 | P.PN ---
Progress Note - Text DATE OF SERVICE: 02/15/2017 CHIEF COMPLAINT : Bariatric assessment. HISTORY OF PRESENT ILLNESS: Earline Bermeo is 46-year-old female who is status post gastric bypass on 02/11/2017. She is postoperative day #4. At her height of 5-foot 5-3/4 inch-frame today she comes in weighing 260 pounds. Her body mass index is reduced to 42.4. She has lost 7 pounds. Her body mass index was 43.6. She is 111 pounds over weight. She denies any fevers or chills. She reports constipation with some blood. She denies any swelling of the legs. She started her protein shakes. PHYSICAL EXAM: VITAL SIGNS: 5 feet 5-3/4 inch frame, 260 pounds. Body mass index of 42.4. Vital Signs 02/15/17 12:12 Temperature 98.2 F Pulse Rate 85 Blood Pressure 118/70 ABDOMEN: Soft, mild distention. Some tenderness. No palpable incisional hernia. No signs of infection. GENERAL: Well-developed pleasant female in no acute distress. HEENT: No scleral icterus. Extraocular movements grossly intact. Moist buccal mucosa. NECK: Supple without lymphadenopathy. CHEST: Nonlabored respirations with equal respirations. CARDIOVASCULAR: Regular rate and rhythm. EXTREMITIES: No cyanosis, or edema. NEURO: No focal or lateralizing signs. Cranial nerves II through XII grossly within normal limits. PSYCH: Appropriate affect. Alert and oriented in person, place, and time. ASSESSMENT: 1. Morbid obesity due to excess calories. 2. Body mass index 43.6 down to 42.4. 3. Obstructive sleep apnea. 4. Hypertensive heart disease. 5. Renal insufficiency secondary to hypertensive disease. 6. History of tobacco use in remission. 7. Vitamin D deficiency. 8. History of chronic pain. 9. History of spine stimulator. 10. Status post Cherise-en-Y gastric bypass. PLAN: 1. Recommend continued IV fluid hydration. 2. Continue protein shakes. 3. Follow-up in one week.
== END | disposition home or self-care (01) ==
LOC: BARWHC3 09:38
PROVIDERS: ATTEND Surgery Plastic and Reconstructive Surgery
DX: E66.01 Morbid (severe) obesity due to excess calories (principal); G47.33 Obstructive sleep apnea (adult) (pediatric); I11.0 Hypertensive heart disease with heart failure; N28.9 Disorder of kidney and ureter, unspecified; E55.9 Vitamin D deficiency, unspecified; Z68.41 Body mass index [BMI] 40.0-44.9, adult; Z98.84 Bariatric surgery status; Z87.891 Personal history of nicotine dependence
CPT/HCPCS: 99211

== ENCOUNTER → 2017-03-06 | Outpatient (CLI) | payer MEDICARE, OTHER ==
--- NOTE | 2017-03-06 16:02 | CT ---
EXAMINATION TYPE: CT abdomen pelvis w con DATE OF EXAM: 03/06/2017 COMPARISON: NONE HISTORY: LLQ pain. Hx of gastric bypass. CT DLP: 1545.3 mGycm Automated exposure control for dose reduction was used. TECHNIQUE: Helical acquisition of images from the lung bases through the pelvis have been completed. CONTRAST: Performed with Oral Contrast and with IV Contrast, patient injected with 100 mL of Omnipaque 300. FINDINGS: Patient is status post gastric bypass surgery with Cherise-en-Y. LUNG BASES: No significant abnormality is appreciated. AORTA: No significant abnormality is appreciated. LIVER/GB: The liver is enlarged. Some low-attenuation is suspected suggestive of hepatic steatosis. G allbladder is normal. PANCREAS: No significant abnormality is seen. SPLEEN: Enlarged ADRENALS: No significant abnormality is seen. KIDNEYS: No significant abnormality is seen. REPRODUCTIVE ORGANS: Left adnexal cyst likely ovarian measures approximately 4 cm. BOWEL: No significant abnormality is seen. FREE AIR: No Free Air visible. ASCITES: None visible. PELVIC ADENOPATHY: None visualized. RETROPERITONEAL ADENOPATHY: No Retroperitoneal Adenopathy visible. URINARY BLADDER: No significant abnormality is seen. OSSEOUS STRUCTURES: Bilateral spondylolysis at L5. Anterolisthesis grade 1 L5-S1. Sclerosis present at the sacroiliac joints.. Stimulator leads are present within the subcutaneous fat generator extendi ng to the thoracic canal posteriorly. IMPRESSION: POSTOP CHANGES. HEPATOSPLENOMEGALY. LEFT OVARIAN CYST. CONSIDER FOLLOW-UP PELVIC ULTRASOUND.
== END | disposition home or self-care (01) ==
LOC: RADCTMAIN 15:24
PROVIDERS: ATTEND Surgery Plastic and Reconstructive Surgery
DX: N83.202 Unspecified ovarian cyst, left side (principal); R16.2 Hepatomegaly with splenomegaly, not elsewhere classified; Z98.890 Other specified postprocedural states
CPT/HCPCS: 74177; Q9967

== ENCOUNTER → 2017-03-06 | Outpatient (CLI) | payer MEDICARE, OTHER ==
[2017-03-06 14:23] VITALS: BP 153/86; PULSE 65; RESP 16; TEMP 97.6; BMI 40.8
[2017-03-06 15:27] LABS: CH 30.5; CHCM 31.6; HCT 36.3 % (34.0-46.0); HDW 2.98; Hypochromasia Moderate; MCH 30.4 pg (25.0-35.0); MCHC 31.2 g/dL (31.0-37.0); MCV 97.4 fL (80.0-100.0); Mean Platelet Volume 7.7; RBC 3.73 m/uL (3.80-5.40); RDW 14.2 % (11.5-15.5); WBC 5.5 k/uL (3.8-10.6)
[2017-03-06 15:29] LABS: HGB 11.4 gm/dL (11.4-16.0)
[2017-03-06 15:41] LABS: ALT 37 U/L (9-52); AST 23 U/L (14-36); Alkaline Phosphatase 63 U/L (38-126); Anion Gap 11 mmol/L; Blood Urea Nitrogen 11 mg/dL (7-17); Calcium 9.7 mg/dL (8.4-10.2); Carbon Dioxide 24 mmol/L (22-30); Chloride 107 mmol/L (98-107); Cholesterol 152 mg/dL (<200); Glucose 98 mg/dL (74-99); HDL Cholesterol 63 mg/dL (40-60); Iron 51 ug/dL (37-170); Magnesium 2.1 mg/dL (1.6-2.3); Non-African American GFR(MDRD) >60 (>60 ml/min/1.73 sqM); Phosphorous 3.5 mg/dL (2.5-4.5); Potassium 4.3 mmol/L (3.5-5.1); Sodium 142 mmol/L (137-145); Total Bilirubin 0.3 mg/dL (0.2-1.3); Total Protein 6.9 g/dL (6.3-8.2)
[2017-03-06 15:42] LABS: Partial Thromboplastin Time 23.2 sec (22.0-30.0); Prothrombin Time 10.4 sec (9.0-12.0)
[2017-03-06 15:52] LABS: % Iron Saturation 16.7 % (20-50); Prealbumin 23 mg/dL (18-36); Total Iron Binding Capacity 306 ug/dL (265-497)
[2017-03-06 16:48] LABS: Vitamin B12 412 pg/mL (239-931)
[2017-03-08 21:24] LABS: Selenium 117 mcg/L (63-160)
== END | disposition home or self-care (01) ==
LOC: BARWHC3 13:34
PROVIDERS: ATTEND Surgery Plastic and Reconstructive Surgery
DX: Z48.815 Encounter for surgical aftercare following surgery on the digestive system (principal); E66.01 Morbid (severe) obesity due to excess calories; Z98.84 Bariatric surgery status; E89.1 Postprocedural hypoinsulinemia; D50.8 Other iron deficiency anemias; E44.0 Moderate protein-calorie malnutrition; E55.9 Vitamin D deficiency, unspecified; K74.1 Hepatic sclerosis; N19 Unspecified kidney failure; K50.90 Crohn's disease, unspecified, without complications; Z68.42 Body mass index [BMI] 45.0-49.9, adult
CPT/HCPCS: 84255; 84134; 84425; 80061; 80053; 82607; 82728; 83036; 82525; 82746; 83540; 83550; 83735; 84100; 84443; 84590; 84630; 85027; 85610; 85730; 82306; 83970; G0463; 99213

== ENCOUNTER 2017-04-05 12:33 | Day surgery (SDC) | payer MEDICARE, OTHER ==
[2017-04-04 13:25] VITALS: BMI 37.0
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
[~2017-04-05 12:33] MED LIST changes: -ACETAMINOPHEN IV (For NPO) 1,000 MG in EMPTY BAG 1 BAG IVPB ONE; -CHLORHEXIDINE GLUCONATE 15 ML CUP MUCOUS MEM ONE; -DEXAMETHASONE SOD PHOSPHATE 10 MG/ML 1 ML VIAL IV ONE; -ENOXAPARIN 40 MG/0.4 ML SYRINGE SQ STA; -HYDROmorphone 1 MG/ML 1 ML SYRINGE IVP PRN; +LACTATED RINGERS 1,000 ML IV SCH; -LIDOCAINE 1% 20 ML VIAL (10MG/ML) FOR IV START INTRADERMA PRN; -PANTOPRAZOLE 40 MG/10 ML VIAL IV STA; -SCOPOLAMINE 1.5MG/72HR PATCH TRANSDERM ONE; -ceFAZolin 3 GM in SODIUM CHLORIDE 0.9% 100 ML IVPB ONE
[2017-04-05 13:29] VITALS: RESP 16; TEMP 97
[2017-04-05] MEDS ORDERED: LIDOCAINE 1% INJ 10MG/ML (20 ML MDV) ONE (13:31)
[2017-04-05] MEDS ORDERED: PROPOFOL 10 MG/ML 20 ML VIAL IV ONE (13:31)
--- NOTE | 2017-04-05 13:49 | P.PCN ---
Date of Procedure: 04/05/17 Preoperative Diagnosis: Postoperative Diagnosis: Procedure(s) Performed: Implants: Indications for Procedure: Operative Findings: Description of Procedure: PREOPERATIVE DIAGNOSIS: Dysphagia. Gastroesophageal reflux disease Nausea with vomiting. POSTOPERATIVE DIAGNOSIS: Dysphagia. Gastroesophageal reflux disease Nausea with vomiting. Gastrojejunal stricture without chronic ulcer without perforation OPERATION: Esophagogastrojejunoscopy with balloon dilatation from 12 to 20 mm. SURGEON: Rosa Maria Arrington MD ANESTHESIA: MAC. INDICATIONS: The patient is a 46-year-old female who presents with a history of dysphagia, gastroesophageal reflux disease including nausea and vomiting. Benefits and risks of the procedure were described. Informed consent was obtained. DESCRIPTION: The patient was brought into the endoscopy suite and laid in the left lateral decubitus position. After a timeout was confirmed, the procedure was initiated. An Olympus gastroscope was passed along the posterior oropharynx down to the distal esophagus where the squamocolumnar junction was unremarkable. The gastric pouch was entered. A gastrojejunal stricture of 12 mm was found as the adult gastroscope was 9.5 mm in size. A Fusion Antibodies balloon dilator was placed through the scope. Final insufflation up to 20 mm was performed with a total of 2 minutes. The scope was advanced up to 60 cm from the incisors into the Cherise limb. The mucosa of the gastrojejunal anastomosis was intact. No chronic gastrojejunal marginal ulcer was encountered. No full-thickness injury was encountered. The GI tract was desufflated. The patient tolerated the procedure well. FINDINGS: Squamocolumnar junction unremarkable at 35 cm. Stricture of approximately 12 mm encountered. No chronic gastrojejunal ulceration encountered. Staple found along the anastomosis at 40 cm from the incisors. Successful balloon dilatation to 20 mm. Diaphragmatic hiatus at 40 cm. Gastric pouch 5 cm. RECOMMENDATIONS: Upper endoscopy as needed Plan - Discharge Summary New Discharge Prescriptions: No Action HYDROcodone/APAP 10-325MG [[place] 10-325] 1 tab PO Q6H PRN #15 tab PRN Reason: Pain Omeprazole 40 mg PO DAILY #90 capsule. Simethicone 40 mg/0.6 ml Drops [Mylicon Drops] 40 mg PO Q6HR bottle Magnesium Hydroxide [Milk of Magnesia] 400 mg PO DAILY #769 ml Polyethylene Glycol 3350 [Miralax] 17 gm PO DAILY #255 gm Topiramate [Topamax] 25 mg PO HS PARoxetine HCL [Paxil] 20 mg PO DAILY Oxybutynin Chloride [Ditropan] 5 mg PO BID Ergocalciferol [Vitamin D2 (DRISDOL)] 50,000 unit PO [place] Discharge Medication List HYDROcodone/APAP 10-325MG [[place] 10-325] 1 tab PO Q6H PRN #15 tab 02/13/17 [Rx] Omeprazole 40 mg PO DAILY #90 capsule.dr 02/13/17 [Rx] Simethicone 40 mg/0.6 ml Drops [Mylicon Drops] 40 mg PO Q6HR bottle 02/13/17 [ Rx] Magnesium Hydroxide [Milk of Magnesia] 400 mg PO DAILY #769 ml 02/15/17 [Rx] Polyethylene Glycol 3350 [Miralax] 17 gm PO DAILY #255 gm 02/15/17 [Rx] Ergocalciferol [Vitamin D2 (DRISDOL)] 50,000 unit PO [place] 04/04/17 [History] Oxybutynin Chloride [Ditropan] 5 mg PO BID 04/04/17 [History] PARoxetine HCL [Paxil] 20 mg PO DAILY 04/04/17 [History] Topiramate [Topamax] 25 mg PO HS 04/04/17 [History]
[2017-04-05 14:27] VITALS: BP 122/73; PULSE 61
== END 2017-04-05 14:45 | disposition home or self-care (01) ==
LOC: ORWHC2ENDO 12:33
PROVIDERS: ATTEND Surgery Plastic and Reconstructive Surgery
DX: K31.89 Other diseases of stomach and duodenum (principal); K21.9 Gastro-esophageal reflux disease without esophagitis; Z98.84 Bariatric surgery status; M19.90 Unspecified osteoarthritis, unspecified site; M41.9 Scoliosis, unspecified; G47.33 Obstructive sleep apnea (adult) (pediatric); G62.9 Polyneuropathy, unspecified; F39 Unspecified mood [affective] disorder; Z79.899 Other long term (current) drug therapy; Z87.891 Personal history of nicotine dependence
CPT/HCPCS: 43245; J2001; J2704; C1726

== ENCOUNTER → 2017-08-28 | Outpatient (CLI) | payer MEDICARE, OTHER ==
[2017-08-28 13:41] VITALS: BP 113/78; PULSE 71; RESP 15; BMI 33.2
--- NOTE | 2017-09-29 17:28 | P.PN ---
Subjective Progress Note Date: 08/28/17 DATE OF SERVICE: 08/28/2017 CHIEF COMPLAINT: Follow up gastric bypass. HISTORY OF PRESENT ILLNESS: Earline Bermeo is 47-year-old female who is status post gastric bypass on 02/11/2017. She reports doing quite well. She reports intolerance to fatty foods. Specifically she has intermittent right upper quadrant abdominal pain. She has some trouble with eating vegetables. His family history of gallbladder disease. No shortness for further follow-up. At her height of 5-foot 5-3/4 inch-frame, she was 267 pounds. Her body mass index was 43.6. Today she comes in weighing 204 pounds. She has lost 33 pounds in 4 months. Her body mass index is reduced from 43.5 to 33.2. Percent excess weight loss is 53%. She is 55 pounds over weight. PAST MEDICAL HISTORY: 1. Chronic pain syndrome. 2. Gastroesophageal reflux disease. 3. Sleep disorder. 4. Scoliosis. 5. Degenerative joint disease of lower back. 6. Bilateral carpal tunnel disease. 7. Depression. PAST SURGICAL HISTORY: 1. Surgical implant of spinal cord stimulator. 2. Sinus surgery. 3. Removal of a lipoma. 4. Left rotator cuff surgery. 5. Upper endoscopy. 6. Gastric bypass MEDICATIONS: 1. Multivitamin. 2. Topamax 3. Miralax 4. Paxil 5. Omeprazole ALLERGIES: No latex allergies. SOCIAL HISTORY: No active tobacco use. She does have a previous tobacco use. is at bedside. FAMILY HISTORY: Pertinent for morbid obesity. REVIEW OF SYSTEMS: CONSTITUTIONAL: At her height of 5-foot 5-3/4 inch-frame, she was 267 pounds. Her body mass index was 43.6. Today she comes in weighing 204 pounds. She has lost 33 pounds in 4 months. Her body mass index is reduced from 43.5 to 33.2. Percent excess weight loss is 53%. She is 55 pounds over weight. HEENT: No reports of troubles with vision, hearing, or dysphagia. ENDOCRINE: No reports of diabetes or thyroid disorder. CARDIOVASCULAR: History of hypertension. No reports of palpitations or recent heart attack. RESPIRATORY: History of obstructive sleep apnea; however, not currently treated. Denies recent pneumonia. GASTROINTESTINAL: No reports of dumping syndrome or diarrhea. Has severe fatty food intolerance. Gastroesophageal reflux disease resolves. MUSCULOSKELETAL: Has diffuse osteoarthritis including of the lower back. Has a pain stimulator as a result of lower back. Pain improved with weight loss. NEURO: No reports of stroke or seizure disorder. PSYCH: History of bipolar disorder including depression. HEMATOLOGIC: No reports of easy bruising or bleeding. PHYSICAL EXAM: VITAL SIGNS: 5 feet 5-3/4 inch frame, 204 pounds. Body mass index of 33.2. Vital Signs Temp Pulse 71 08/28/17 13:18 Resp 15 08/28/17 13:18 BP 113/78 08/28/17 13:18 Pulse Ox ABDOMEN: Soft, nondistended. Tender along the right upper quadrant. No hernias along bariatric sites. GENERAL: Well-developed pleasant female in no acute distress. HEENT: No scleral icterus. Extraocular movements grossly intact. Moist buccal mucosa. NECK: Supple without lymphadenopathy. CHEST: Nonlabored respirations with equal respirations. CARDIOVASCULAR: Regular rate and rhythm. EXTREMITIES: No cyanosis, or edema. NEURO: No focal or lateralizing signs. Cranial nerves II through XII grossly within normal limits. PSYCH: Appropriate affect. Alert and oriented in person, place, and time. SKIN: Well perfused. Good skin turgor. ASSESSMENT: 1. Morbid obesity due to excess calories. 2. Body mass index 43.5 down to 33.2. 3. Obstructive sleep apnea, now resolved. 4. Hypertensive heart disease, improved. 5. Renal insufficiency secondary to hypertensive disease, resolved. 6. History of tobacco use in remission. 7. Vitamin D deficiency. 8. History of chronic pain. 9. History of spine stimulator. 10. Status post Cherise-en-Y gastric bypass. 11. Right upper quadrant abdominal pain. 12. Chronic cholecystitis. PLAN: 1. Recommend bariatric lab panel. 2. She has clinical findings consistent with chronic cholecystitis. Laparoscopic cholecystectomy was described in detail. 3. Fat-free diet advised. 4. DVT prophylaxis. 5. Antibiotic prophylaxis. Objective - Vital Signs Vital signs: Vital Signs Temp Pulse 71 08/28/17 13:18 Resp 15 08/28/17 13:18 BP 113/78 08/28/17 13:18 Pulse Ox Intake & Output 08/27/17 08/28/17 08/28/17 18:59 06:59 18:59 Weight 92.669 kg
== END | disposition home or self-care (01) ==
LOC: BARWHC3 13:08
PROVIDERS: ATTEND Surgery Plastic and Reconstructive Surgery
DX: Z09 Encounter for follow-up examination after completed treatment for conditions other than malignant neoplasm (principal); R10.11 Right upper quadrant pain; E66.01 Morbid (severe) obesity due to excess calories; I11.9 Hypertensive heart disease without heart failure; N28.9 Disorder of kidney and ureter, unspecified; E55.9 Vitamin D deficiency, unspecified; K81.1 Chronic cholecystitis; G89.4 Chronic pain syndrome; K21.9 Gastro-esophageal reflux disease without esophagitis; M41.9 Scoliosis, unspecified; G56.03 Carpal tunnel syndrome, bilateral upper limbs; F32.9 Major depressive disorder, single episode, unspecified; Z96.9 Presence of functional implant, unspecified; Z98.84 Bariatric surgery status; Z87.891 Personal history of nicotine dependence; Z68.33 Body mass index [BMI] 33.0-33.9, adult; Z98.890 Other specified postprocedural states; Z79.899 Other long term (current) drug therapy
CPT/HCPCS: 97803; G0463; 99211

== ENCOUNTER → 2017-09-26 | Outpatient (CLI) | payer MEDICARE, OTHER ==
[2017-09-26 13:02] LABS: Basophils % (A) 0 %; Eosinophils # (A) 0.2 k/uL (0-0.7); Eosinophils % (A) 3 %; HGB 12.6 gm/dL (11.4-16.0); Lymphocytes # (A) 3.1 k/uL (1.0-4.8); Lymphocytes % (A) 41 %; MCH 29.4 pg (25.0-35.0); MCHC 31.4 g/dL (31.0-37.0); MCV 93.4 fL (80.0-100.0); Monocytes # (A) 0.3 k/uL (0-1.0); Monocytes % (A) 4 %; Neutrophils # (A) 3.9 k/uL (1.3-7.7); Neutrophils % (A) 51 %; Platelet Count 319 k/uL (150-450); RBC 4.28 m/uL (3.80-5.40); RDW 12.7 % (11.5-15.5); WBC 7.8 k/uL (3.8-10.6)
[2017-09-26 13:20] LABS: ALT 27 U/L (9-52); AST 23 U/L (14-36); Albumin 4.1 g/dL (3.5-5.0); Alkaline Phosphatase 74 U/L (38-126); Anion Gap 9 mmol/L; Blood Urea Nitrogen 18 mg/dL (7-17); Calcium 9.8 mg/dL (8.4-10.2); Carbon Dioxide 32 mmol/L (22-30); Chloride 102 mmol/L (98-107); Glucose 105 mg/dL (74-99); Potassium 4.4 mmol/L (3.5-5.1); Sodium 143 mmol/L (137-145); Total Bilirubin 0.1 mg/dL (0.2-1.3); Total Protein 6.7 g/dL (6.3-8.2)
== END | disposition home or self-care (01) ==
LOC: LABPAT 12:27
PROVIDERS: ATTEND Surgery Plastic and Reconstructive Surgery
DX: Z01.812 Encounter for preprocedural laboratory examination (principal)
CPT/HCPCS: 36415; 80053; 85025

== ENCOUNTER 2017-09-30 06:29 | Day surgery (SDC) | payer MEDICARE, OTHER ==
[2017-09-26 14:38] VITALS: BMI 31.8
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
[~2017-09-30 06:29] MED LIST changes: +ACETAMINOPHEN IV (For NPO) 1,000 MG in EMPTY BAG 1 BAG IVPB ONE; +DEXAMETHASONE SOD PHOSPHATE 10 MG/ML 1 ML VIAL IV ONE; +HEPARIN SODIUM,PORCINE 5,000 UNIT/ML 1 ML VIAL SQ ONE; +HEPARIN SODIUM,PORCINE 5,000 UNIT/ML 1 ML VIAL SQ STA; +INDOCYANINE GREEN 25 MG VIAL IV STA; -LACTATED RINGERS 1,000 ML IV SCH; +LIDOCAINE 1% 20 ML VIAL (10MG/ML) FOR IV START INTRADERMA PRN; +ONDANSETRON 4 MG/2 ML VIAL IVP ONE; +SCOPOLAMINE 1.5MG/72HR PATCH TRANSDERM ONE; +SCOPOLAMINE 1.5MG/72HR PATCH TRANSDERM STA; +ceFAZolin IN SWFI 2 GM/20 ML SYRINGE IVP ONE; +fentaNYL (PF) 50 MCG/ML 2 ML AMP IV PRN
[2017-09-30] MEDS: LACTATED RINGERS 1,000 ML IV SCH ×2 (07:15→07:17)
[2017-09-30] MEDS ORDERED: BUPIVACAINE (PF) 0.25% 30 ML VIAL SQ ONE (07:32)
[2017-09-30] MEDS ORDERED: ROCURONIUM BROMIDE 10 MG/ML 10 ML VIAL IV ONE (07:35)
[2017-09-30] MEDS ORDERED: MIDAZOLAM 2 MG/2 ML VIAL ONE (07:35)
[2017-09-30] MEDS ORDERED: NEOSTIGMINE 1 MG/ML 10 ML VIAL ONE (07:35)
[2017-09-30] MEDS ORDERED: PROPOFOL 10 MG/ML 20 ML VIAL IV ONE (07:35)
[2017-09-30] MEDS ORDERED: GLYCOPYRROLATE 0.2 MG/ML 2 ML VIAL ONE (07:35)
[2017-09-30] MEDS ORDERED: SUCCINYLCHOLINE CHLORIDE 100 MG/5 ML SYR IV ONE (07:35)
[2017-09-30] MEDS ORDERED: fentaNYL (PF) 50 MCG/ML 2 ML AMP ONE (07:35)
[2017-09-30] MEDS ORDERED: LIDOCAINE 1% INJ 10MG/ML (20 ML MDV) ONE (07:35)
--- NOTE | 2017-09-30 08:57 | P.OP ---
Date of Procedure: 09/30/17 Description of Procedure: SURGEON: LEANA TAPIA MD MATH TEACHER: 1. BEAR NULL 2. KARLEY GANDHI PREOPERATIVE DIAGNOSES: 1. Chronic cholecystitis. 2. Right upper quadrant abdominal pain 3. Status post gastric bypass 4. Chronic pain syndrome POSTOPERATIVE DIAGNOSES: 1. Chronic cholecystitis. 2. Right upper quadrant abdominal pain 3. Status post gastric bypass 4. Chronic pain syndrome OPERATION: Robotic-assisted da Gilbert Xi laparoscopic cholecystectomy, multiport with FIREFLY ESTIMATED BLOOD LOSS: 5 mL. SPECIMENS REMOVED: Gallbladder. COMPLICATIONS: None. OPERATIVE FINDINGS: 1. Chronic cholecystitis. 2. Fusiform-shaped gallbladder secondary to intrahepatic component along the mid body 3. Long cystic duct with V-shaped angulation involving the gallbladder infundibulum identified using firefly. 4. Hepatic fossa without bleeding or clips or bile leakage. INDICATIONS: The patient is a 41-year-old female who presents with chronic cholelcystitis. Surgical intervention with a laparoscopic cholecystectomy was described at length including injury to the biliary tree, bleeding, infection, need for further surgery. Informed consent was obtained. Robotic assisted laparoscopic approach was described. Benefits and risks of the procedure including but not limited to bleeding, infection, injury to the biliary tree was described. Informed consent was obtained. DESCRIPTION OF PROCEDURE: Patient was brought to the operating room, placed in supine position. After general induction, the abdomen had been prepped and draped in standard sterile fashion. The robotic da Gilbert XI system was primed. After a timeout protocol was performed, the patient had been prepped and draped in standard sterile fashion. The patient was injected with indocyanine green. The robot was docked along the left lateral abdomen. The patient was repositioned in reverse Trendelenburg position. Please note prior to docking of the robot; however, a 5 mm 0 degrees laparoscopic trocar entry was performed along the left upper quadrant. Next, two 8 mm robotic ports were placed along the right upper abdomen. The camera 8-mm port was maintained along the epigastrium. Another 8 mm port was placed along the left upper abdominal wall after exchanging the 5 mm port. Please note that the ports were placed at least 10 to 15 cm away from the target anatomy of the gallbladder. Using a grasper for arm 3, a grasper for arm 2, including hook cautery for arm 1 , the robotic system was docked and primed as described. Instruments were interchanged by the occupational therapy assistant including hook cautery, Bovie cautery scissors and clip appliers. I had sat at the console. Adhesions were identified along the infundibulum of the gallbladder and addressed using hook cautery. The gallbladder fundus was retracted over the dome of the liver. Initial attention was brought to the infundibulum which was gently retracted in the inferior lateral approach. Using a grasper, the cystic duct including the cystic artery was carefully skeletonized. FIREFLY was used to identify the cystic artery and cystic structures. Using a clip welt rougher 2 large PLASTIC clips were placed proximally, and 1 clip was placed distally along the cystic duct and then cauterized with the cautery. Again care was taken to avoid any injury to the biliary tree as the common bile duct was clearly visualized during this portion of dissection. Next, the cystic artery was cauterized. Electro-Bovie cautery was used to remove the gallbladder from the hepatic fossa. Hemostasis was checked and found to be adequate. The robot was undocked. I re-scrubbed into the case. Using a 10 mm Endo Catch bag via the left upper quadrant incision, the specimen was removed from the abdominal cavity. All pneumoperitoneum instruments were evacuated from the abdominal cavity. The incisions were reapproximated using 4-0 Monocryl in an interrupted subcuticular fashion. Fascial defect was less than 8 mm in size. Please note along the trocar sites, local anesthetic was placed as a field block prior to insertion of all instruments. Dermabond was applied to the skin. At the end of the procedure needle, sponge, and instrument count had been verified correct by the surgical manager. The patient was transferred to postanesthesia care unit in stable condition. Intraoperative films were shared with the patient's family who were very pleased with the level of care. Console time 29 minutes Plan - Discharge Summary New Discharge Prescriptions: No Action HYDROcodone/APAP 10-325MG [[place] 10-325] 1 tab PO Q6H PRN #15 tab PRN Reason: Pain Polyethylene Glycol 3350 [Miralax] 17 gm PO DAILY #255 gm Topiramate [Topamax] 25 mg PO HS PARoxetine HCL [Paxil] 20 mg PO QAM Ergocalciferol [Vitamin D2 (DRISDOL)] 50,000 unit PO ASUTIN Omeprazole 40 mg PO QAM Magnesium Hydroxide [Milk of Magnesia] 400 mg PO Q2D Discharge Medication List HYDROcodone/APAP 10-325MG [[place] 10-325] 1 tab PO Q6H PRN #15 tab 02/13/17 [Rx] Polyethylene Glycol 3350 [Miralax] 17 gm PO DAILY #255 gm 02/15/17 [Rx] Ergocalciferol [Vitamin D2 (DRISDOL)] 50,000 unit PO [place] 04/04/17 [History] PARoxetine HCL [Paxil] 20 mg PO QAM 04/04/17 [History] Topiramate [Topamax] 25 mg PO HS 04/04/17 [History] Magnesium Hydroxide [Milk of Magnesia] 400 mg PO Q2D 09/26/17 [History] Omeprazole 40 mg PO QAM 09/26/17 [History] Patient Instructions/Handouts: *[facility] - Laparoscopic Cholecystectomy Discharge Instructions, *[facility] - (Anesthesia) Discharge Instructions Outpatient Surgery, *[facility] - Scopalamine Patch Instructions
[2017-09-30] MEDS: MEPERIDINE 50 MG/ML SYRINGE IVP ONE ×2 (09:15→09:21)
[2017-09-30] MEDS ORDERED: diphenhydrAMINE 50 MG/ML 1 ML VIAL IVP ONE (09:17)
[2017-09-30 09:26] VITALS: TEMP 96.8
[2017-09-30] MEDS ORDERED: HYDROcodone/APAP 10-325MG 1 EACH TAB PO ONE (12:27)
[2017-09-30 13:00] VITALS: BP 126/73; PULSE 57; RESP 16
== END 2017-09-30 13:04 | disposition home or self-care (01) ==
LOC: OR 06:29
PROVIDERS: ATTEND Surgery Plastic and Reconstructive Surgery
DX: K80.10 Calculus of gallbladder with chronic cholecystitis without obstruction (principal); G89.4 Chronic pain syndrome; K21.9 Gastro-esophageal reflux disease without esophagitis; M19.90 Unspecified osteoarthritis, unspecified site; G47.33 Obstructive sleep apnea (adult) (pediatric); M41.9 Scoliosis, unspecified; G62.9 Polyneuropathy, unspecified; F39 Unspecified mood [affective] disorder; Z96.89 Presence of other specified functional implants; Z98.84 Bariatric surgery status; Z79.899 Other long term (current) drug therapy; Z88.5 Allergy status to narcotic agent; Z87.891 Personal history of nicotine dependence
CPT/HCPCS: 47562; 81025; 88304; J2250; J1200; J1644; J1100; J2710; J2175; J2405; J2001; J3010; J0131; J0330; J2704; J0690; 86850; 86900; 86901

== ENCOUNTER → 2017-12-04 | Outpatient (CLI) | payer MEDICARE, OTHER ==
[2017-12-04 14:16] VITALS: BP 135/75; PULSE 74; RESP 15; TEMP 97.8; BMI 30.2
--- NOTE | 2017-12-04 14:38 | P.PN ---
Subjective Progress Note Date: 12/04/17 DATE OF SERVICE: 12/04/2017 CHIEF COMPLAINT: Follow up gastric bypass. HISTORY OF PRESENT ILLNESS: Earline Bermeo is 47-year-old female who is status post gastric bypass on 02/11/2017. She is 10 months out. She was last seen . She complains of acid reflux. She is drinking moderate coffee. She is eating less amount of protein. She is drinking less water and fluids. She is barely on 55 g of protein intake. She wakes up from burning of the stomach at the epigastrium on occassion. At her height of 5-foot 5-3/4 inch-frame, she was 267 pounds. Her body mass index was 43.6. Today she comes in weighing 186 pounds from her last weight of 204 pounds. She has lost 19 pounds in 3 months. Her total weight loss is 82 pounds. Her body mass index is reduced from 43.5 to 30.2. Percent excess weight loss is 69 %. She is 36 pounds over weight. PAST MEDICAL HISTORY: 1. Chronic pain syndrome. 2. Gastroesophageal reflux disease. 3. Sleep disorder. 4. Scoliosis. 5. Degenerative joint disease of lower back. 6. Bilateral carpal tunnel disease. 7. Depression. 8. Morbid obesity, BMI 43.6, initial PAST SURGICAL HISTORY: 1. Surgical implant of spinal cord stimulator. 2. Sinus surgery. 3. Removal of a lipoma. 4. Left rotator cuff surgery. 5. Upper endoscopy. 6. Gastric bypass MEDICATIONS: 1. Multivitamin. 2. Topamax 3. Miralax 4. Paxil 5. Omeprazole ALLERGIES: No latex allergies. SOCIAL HISTORY: No active tobacco use. She does have a previous tobacco use. is at bedside. FAMILY HISTORY: Pertinent for morbid obesity. REVIEW OF SYSTEMS: CONSTITUTIONAL: At her height of 5-foot 5-3/4 inch-frame, she was 267 pounds. Her body mass index was 43.6. Today she comes in weighing 204 pounds. She has lost 33 pounds in 4 months. Her body mass index is reduced from 43.5 to 33.2. Percent excess weight loss is 53%. She is 55 pounds over weight. HEENT: No reports of troubles with vision, hearing, or dysphagia. ENDOCRINE: No reports of diabetes or thyroid disorder. CARDIOVASCULAR: History of hypertension. No reports of palpitations or recent heart attack. RESPIRATORY: History of obstructive sleep apnea; however, not currently treated. Denies recent pneumonia. GASTROINTESTINAL: No reports of dumping syndrome or diarrhea. Has severe fatty food intolerance. Gastroesophageal reflux disease resolves. MUSCULOSKELETAL: Has diffuse osteoarthritis including of the lower back. Has a pain stimulator as a result of lower back. Pain improved with weight loss. NEURO: No reports of stroke or seizure disorder. PSYCH: History of bipolar disorder including depression. HEMATOLOGIC: No reports of easy bruising or bleeding. PHYSICAL EXAM: VITAL SIGNS: 5 feet 5-3/4 inch frame, 186 pounds. Body mass index of 30.2. ABDOMEN: Soft, nondistended. Tender along the right upper quadrant. No hernias along bariatric sites. GENERAL: Well-developed pleasant female in no acute distress. HEENT: No scleral icterus. Extraocular movements grossly intact. Moist buccal mucosa. NECK: Supple without lymphadenopathy. CHEST: Nonlabored respirations with equal respirations. CARDIOVASCULAR: Regular rate and rhythm. EXTREMITIES: No cyanosis, or edema. NEURO: No focal or lateralizing signs. Cranial nerves II through XII grossly within normal limits. PSYCH: Appropriate affect. Alert and oriented in person, place, and time. SKIN: Well perfused. Good skin turgor. ASSESSMENT: 1. Morbid obesity due to excess calories. 2. Body mass index 43.5 down to 30.2. 3. Obstructive sleep apnea, now resolved. 4. Hypertensive heart disease, improved. 5. Renal insufficiency secondary to hypertensive disease, resolved. 6. History of tobacco use in remission. 7. Vitamin D deficiency. 8. History of chronic pain. 9. History of spine stimulator. 10. Status post Cherise-en-Y gastric bypass. 11. Right upper quadrant abdominal pain. 12. Chronic cholecystitis. 13. Dietary surveillance and counseling. 14. Headaches. 15. Panniculitis. PLAN: 1. Recommend bariatric lab panel. 2. She is drinking moderate coffee with decrease fluid intake. Recommend decrease coffee intake. 3. She has inadequate protein intake. 4. Increase fluid intake. 5. Food diary journal to help. 6. Recommend Nystatin powder for panniculitis. Objective - Vital Signs Vital signs: Vital Signs Temp 97.8 F 12/04/17 13:58 Pulse 74 12/04/17 13:58 Resp 15 12/04/17 13:58 BP 135/75 12/04/17 13:58 Pulse Ox Intake & Output 12/03/17 12/04/17 12/04/17 18:59 06:59 18:59 Weight 84.323 kg
[2017-12-04 15:40] LABS: HCT 38.5 % (34.0-46.0); HGB 12.7 gm/dL (11.4-16.0); MCH 29.5 pg (25.0-35.0); MCV 89.3 fL (80.0-100.0); Mean Platelet Volume 7.1; Platelet Count 394 k/uL (150-450); RBC 4.31 m/uL (3.80-5.40); RDW 12.8 % (11.5-15.5); WBC 8.8 k/uL (3.8-10.6)
[2017-12-04 15:53] LABS: Partial Thromboplastin Time 22.3 sec (22.0-30.0)
[2017-12-04 16:07] LABS: ALT 22 U/L (9-52); AST 24 U/L (14-36); Albumin 4.5 g/dL (3.5-5.0); Alkaline Phosphatase 94 U/L (38-126); Anion Gap 18 mmol/L; Blood Urea Nitrogen 19 mg/dL (7-17); Carbon Dioxide 21 mmol/L (22-30); Chloride 104 mmol/L (98-107); Cholesterol 154 mg/dL (<200); Glucose 111 mg/dL (74-99); HDL Cholesterol 65 mg/dL (40-60); LDL Cholesterol,Calculated 68 mg/dL (0-99); Magnesium 2.2 mg/dL (1.6-2.3); Phosphorus 4.2 mg/dL (2.5-4.5); Sodium 143 mmol/L (137-145); Total Bilirubin 0.2 mg/dL (0.2-1.3); Total Protein 7.2 g/dL (6.3-8.2); Triglycerides 106 mg/dL (<150)
[2017-12-05 01:10] LABS: Iron Saturation 18.34 (12.00-45.00)
[2017-12-05 01:18] LABS: Vitamin D 25 Hydroxy 50.5 ng/mL (30.0-100.0)
[2017-12-05 01:20] LABS: Folate, Serum >24.0 ng/mL
[2017-12-05 01:32] LABS: Parathyroid Hormone Intact 46.5 pg/mL (14.0-72.0)
[2017-12-05 01:58] LABS: Hemoglobin A1C 5.2 % (4.0-6.0)
[2017-12-05 13:04] LABS: Zinc, Serum 64 ug/dL (60-130)
[2017-12-06 06:56] LABS: Vitamin A 58 ug/dL (38-106)
== END | disposition home or self-care (01) ==
LOC: BARWHC3 13:52
PROVIDERS: ATTEND Surgery Plastic and Reconstructive Surgery
DX: Z09 Encounter for follow-up examination after completed treatment for conditions other than malignant neoplasm (principal); K21.9 Gastro-esophageal reflux disease without esophagitis; E66.01 Morbid (severe) obesity due to excess calories; I11.9 Hypertensive heart disease without heart failure; F32.9 Major depressive disorder, single episode, unspecified; E55.9 Vitamin D deficiency, unspecified; R10.11 Right upper quadrant pain; G89.29 Other chronic pain; K81.1 Chronic cholecystitis; M79.3 Panniculitis, unspecified; R51 Headache; Z96.9 Presence of functional implant, unspecified; Z68.30 Body mass index [BMI] 30.0-30.9, adult; Z71.3 Dietary counseling and surveillance; Z98.84 Bariatric surgery status; Z87.891 Personal history of nicotine dependence; Z98.890 Other specified postprocedural states; Z79.899 Other long term (current) drug therapy
CPT/HCPCS: 84255; 84134; 84425; 80061; 80053; 82607; 82728; 82525; 82746; 83540; 83550; 83735; 84100; 84443; 84590; 84630; 85027; 85610; 85730; 82306; 83970; 83036; 97803; 36415; G0463; 99211

== ENCOUNTER 2017-12-11 12:09 | Day surgery (SDC) | payer MEDICARE, OTHER ==
[2017-12-10 08:38] VITALS: BMI 29.5
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
[~2017-12-11 12:09] MED LIST changes: -ACETAMINOPHEN IV (For NPO) 1,000 MG in EMPTY BAG 1 BAG IVPB ONE; -DEXAMETHASONE SOD PHOSPHATE 10 MG/ML 1 ML VIAL IV ONE; -HEPARIN SODIUM,PORCINE 5,000 UNIT/ML 1 ML VIAL SQ ONE; -HEPARIN SODIUM,PORCINE 5,000 UNIT/ML 1 ML VIAL SQ STA; -INDOCYANINE GREEN 25 MG VIAL IV STA; +LACTATED RINGERS 1,000 ML IV SCH; -ONDANSETRON 4 MG/2 ML VIAL IVP ONE; -SCOPOLAMINE 1.5MG/72HR PATCH TRANSDERM ONE; -SCOPOLAMINE 1.5MG/72HR PATCH TRANSDERM STA; -ceFAZolin IN SWFI 2 GM/20 ML SYRINGE IVP ONE; -fentaNYL (PF) 50 MCG/ML 2 ML AMP IV PRN
[2017-12-11 13:50] VITALS: RESP 16; TEMP 97.5
[2017-12-11] MEDS ORDERED: LIDOCAINE 1% INJ 10MG/ML (20 ML MDV) ONE (15:29)
[2017-12-11] MEDS ORDERED: PROPOFOL 10 MG/ML 20 ML VIAL IV ONE (15:29)
--- NOTE | 2017-12-11 15:44 | P.PCN ---
Date of Procedure: 12/11/17 Description of Procedure: PREOPERATIVE DIAGNOSIS: Dysphagia. Gastroesophageal reflux disease POSTOPERATIVE DIAGNOSIS: Dysphagia. Gastroesophageal reflux disease Gastrojejunal stricture with chronic ulcer without perforation OPERATION: Esophagogastrojejunoscopy with balloon dilatation from 12 to 20 mm. SURGEON: Rosa Maria Arrington MD ANESTHESIA: MAC. INDICATIONS: The patient is a 47-year-old female who presents with a history of dysphagia, gastroesophageal reflux disease including nausea and vomiting. Benefits and risks of the procedure were described. Informed consent was obtained. DESCRIPTION: The patient was brought into the endoscopy suite and laid in the left lateral decubitus position. After a timeout was confirmed, the procedure was initiated. An Olympus gastroscope was passed along the posterior oropharynx down to the distal esophagus where the squamocolumnar junction was unremarkable. The gastric pouch was entered. A gastrojejunal stricture of 12 mm was found as the adult gastroscope was 9.5 mm in size. A [employer] balloon dilator was placed through the scope. Final insufflation up to 20 mm was performed with a total of 1 minute. The scope was advanced up to 50 cm from the incisors into the Cherise limb. The mucosa of the gastrojejunal anastomosis was intact. Chronic gastrojejunal marginal ulcer was encountered. No full-thickness injury was encountered. The GI tract was desufflated. The patient tolerated the procedure well. FINDINGS: Stricture of approximately 12 mm encountered. Chronic gastrojejunal ulceration encountered. Successful balloon dilatation to 20 mm. RECOMMENDATIONS: Upper endoscopy as needed Recommend Carafate and omeprazole Plan - Discharge Summary New Discharge Prescriptions: No Action Omeprazole 40 mg PO DAILY #90 capsule. Calcium Carb/Vitamin D3/Vit K1 [Citracal Soft Chew] 1 each PO BID Multivitamin [Multivitamins Adult Gummies] 2 each PO DAILY Discharge Medication List Omeprazole 40 mg PO DAILY #90 capsule. 12/04/17 [Rx] Calcium Carb/Vitamin D3/Vit K1 [Citracal Soft Chew] 1 each PO BID 12/10/17 [ History] Multivitamin [Multivitamins Adult Gummies] 2 each PO DAILY 12/10/17 [History]
[2017-12-11 16:07] VITALS: BP 120/54; PULSE 57
== END 2017-12-11 16:18 | disposition home or self-care (01) ==
LOC: ORWHC2ENDO 12:09
PROVIDERS: ATTEND Surgery Plastic and Reconstructive Surgery
DX: K31.89 Other diseases of stomach and duodenum (principal); Z98.84 Bariatric surgery status; K25.7 Chronic gastric ulcer without hemorrhage or perforation; K21.9 Gastro-esophageal reflux disease without esophagitis; M19.90 Unspecified osteoarthritis, unspecified site; Z87.891 Personal history of nicotine dependence; Z79.899 Other long term (current) drug therapy; Z88.5 Allergy status to narcotic agent
CPT/HCPCS: 81025; 43245; J2001; J2704; C1726; 43249

== ENCOUNTER → 2018-03-19 | Outpatient (CLI) | payer MEDICARE, OTHER ==
[2018-03-19 14:35] VITALS: BMI 27.8
--- NOTE | 2018-03-19 15:14 | P.PN ---
Subjective Progress Note Date: 03/19/18 HPI: Complains of epigastric pain. She has started smoking. ABDOMEN: Epigastric pain. PLAN: 1. Smoking cessation 2. Upper scope needed Objective - Vital Signs Vital signs: Intake & Output 03/18/18 03/19/18 03/19/18 18:59 06:59 18:59 Weight 77.564 kg
[2018-03-19 15:16] VITALS: BP 125/82; PULSE 54; RESP 20; TEMP 97.7
[2018-03-19 16:17] LABS: HCT 37.1 % (34.0-46.0); MCHC 32.2 g/dL (31.0-37.0); MCV 92.9 fL (80.0-100.0); Mean Platelet Volume 6.8; Platelet Count 326 k/uL (150-450); RDW 12.9 % (11.5-15.5); WBC 7.5 k/uL (3.8-10.6)
[2018-03-19 16:24] LABS: Prothrombin Time 10.1 sec (9.0-12.0)
[2018-03-19 16:36] LABS: ALT 25 U/L (9-52); AST 26 U/L (14-36); Albumin 4.3 g/dL (3.5-5.0); Alkaline Phosphatase 71 U/L (38-126); Anion Gap 7 mmol/L; Blood Urea Nitrogen 15 mg/dL (7-17); Calcium 9.7 mg/dL (8.4-10.2); Carbon Dioxide 28 mmol/L (22-30); Chloride 106 mmol/L (98-107); Cholesterol 146 mg/dL (<200); Glucose 95 mg/dL (74-99); HDL Cholesterol 58 mg/dL (40-60); LDL Cholesterol,Calculated 69 mg/dL (0-99); Magnesium 2.1 mg/dL (1.6-2.3); Phosphorus 3.7 mg/dL (2.5-4.5); Potassium 4.1 mmol/L (3.5-5.1); Sodium 141 mmol/L (137-145); Total Bilirubin 0.3 mg/dL (0.2-1.3); Triglycerides 96 mg/dL (<150)
[2018-03-20 00:41] LABS: Iron Saturation 16.77 (12.00-45.00)
[2018-03-20 01:05] LABS: Folate, Serum >24.0 ng/mL; Vitamin D 25 Hydroxy 106.5 ng/mL (30.0-100.0)
[2018-03-20 01:10] LABS: Hemoglobin A1C 5.4 % (4.0-6.0)
[2018-03-20 01:14] LABS: Parathyroid Hormone Intact 41.3 pg/mL (14.0-72.0)
[2018-03-20 13:17] LABS: Zinc, Serum 82 ug/dL (60-130)
[2018-03-21 06:04] LABS: Vitamin B1 36 ug/L (38-122)
[2018-03-21 07:40] LABS: Vitamin A 44 ug/dL (38-106)
[2018-03-21 19:05] LABS: Selenium 99 mcg/L (63-160)
== END | disposition home or self-care (01) ==
LOC: BARWHC3 13:35
PROVIDERS: ATTEND Surgery Plastic and Reconstructive Surgery
DX: E66.01 Morbid (severe) obesity due to excess calories (principal); E21.1 Secondary hyperparathyroidism, not elsewhere classified; E89.1 Postprocedural hypoinsulinemia; D50.9 Iron deficiency anemia, unspecified; K90.9 Intestinal malabsorption, unspecified; E55.9 Vitamin D deficiency, unspecified; K74.1 Hepatic sclerosis; N19 Unspecified kidney failure; K50.90 Crohn's disease, unspecified, without complications; R10.13 Epigastric pain
CPT/HCPCS: 84255; 84134; 84425; 80061; 80053; 82607; 82728; 82525; 82746; 83540; 83550; 83735; 84100; 84443; 84590; 84630; 85027; 85610; 85730; 82306; 83970; 83036; 97803; 36415; G0463; 99211

== ENCOUNTER 2018-04-30 10:20 | Day surgery (SDC) | payer MEDICARE, OTHER ==
[2018-04-29 08:56] VITALS: BMI 25.8
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
[~2018-04-30 10:20] MED LIST changes: -LIDOCAINE 1% 20 ML VIAL (10MG/ML) FOR IV START INTRADERMA PRN
[2018-04-30 11:12] VITALS: RESP 16; TEMP 97.7
[2018-04-30] MEDS ORDERED: LIDOCAINE 1% 20 ML VIAL (10MG/ML) FOR IV START INTRADERMA ONE (11:19)
[2018-04-30] MEDS ORDERED: LIDOCAINE 1% INJ 10MG/ML (20 ML MDV) ONE (11:46)
[2018-04-30] MEDS ORDERED: PROPOFOL 10 MG/ML 20 ML VIAL IV ONE (11:46)
--- NOTE | 2018-04-30 12:07 | P.PCN ---
Date of Procedure: 04/30/18 Description of Procedure: PREOPERATIVE DIAGNOSIS: Dysphagia. Gastroesophageal reflux disease History of tobacco abuse POSTOPERATIVE DIAGNOSIS: Dysphagia. Gastroesophageal reflux disease History of tobacco abuse Gastrojejunal stricture with chronic ulcer without perforation OPERATION: Esophagogastrojejunoscopy with balloon dilatation from 8 to 15 mm. SURGEON: Rosa Maria Arrington MD ANESTHESIA: MAC. INDICATIONS: The patient is a 47-year-old female who presents with a history of dysphagia, gastroesophageal reflux disease including nausea and vomiting. Benefits and risks of the procedure were described. Informed consent was obtained. DESCRIPTION: The patient was brought into the endoscopy suite and laid in the left lateral decubitus position. After a timeout was confirmed, the procedure was initiated. An Olympus gastroscope was passed along the posterior oropharynx down to the distal esophagus where the squamocolumnar junction was unremarkable. The gastric pouch was entered. A gastrojejunal stricture of 8 mm was found as the adult gastroscope was 9.5 mm in size. A [employer] balloon dilator was placed through the scope. Final insufflation from 10 to 15 mm was performed each for 1 minute. The scope was advanced up to 50 cm from the incisors into the Cherise limb. The mucosa of the gastrojejunal anastomosis was intact. Chronic gastrojejunal marginal ulcer was encountered. No full- thickness injury was encountered. The GI tract was desufflated. The patient tolerated the procedure well. FINDINGS: Stricture of 8 mm encountered. Chronic gastrojejunal ulceration encountered. Successful balloon dilatation to 15 mm. RECOMMENDATIONS: Tobacco the sedation and counseling performed Lifelong PPIs recommended for patient's history of chronic tobacco abuse Plan - Discharge Summary New Discharge Prescriptions: No Action Omeprazole 40 mg PO DAILY #90 capsule. Loratadine [Claritin] 10 mg PO DAILY Multivitamin/Iron/Folic Acid [Centrum Women Tablet] 1 each PO DAILY Calcium Carb/Vitamin D3/Vit K1 [Citracal Soft Chew] 1 each PO DAILY Discharge Medication List Omeprazole 40 mg PO DAILY #90 capsule. 12/04/17 [Rx] Calcium Carb/Vitamin D3/Vit K1 [Citracal Soft Chew] 1 each PO DAILY 04/29/18 [ History] Loratadine [Claritin] 10 mg PO DAILY 04/29/18 [History] Multivitamin/Iron/Folic Acid [Centrum Women Tablet] 1 each PO DAILY 04/29/18 [ History]
[2018-04-30 12:39] VITALS: BP 96/54; PULSE 60
== END 2018-04-30 12:55 | disposition home or self-care (01) ==
LOC: ORWHC2ENDO 10:20
PROVIDERS: ATTEND Surgery Plastic and Reconstructive Surgery
DX: K31.89 Other diseases of stomach and duodenum (principal); K21.9 Gastro-esophageal reflux disease without esophagitis; M41.9 Scoliosis, unspecified; G62.9 Polyneuropathy, unspecified; Z96.89 Presence of other specified functional implants; Z87.891 Personal history of nicotine dependence; G47.33 Obstructive sleep apnea (adult) (pediatric); Z99.89 Dependence on other enabling machines and devices; Z79.899 Other long term (current) drug therapy; Z88.5 Allergy status to narcotic agent
CPT/HCPCS: 81025; 43245; J2001; J2704; C1726 ×2; 43249

== ENCOUNTER 2018-07-18 12:11 | Day surgery (SDC) | payer MEDICARE, OTHER ==
[2018-07-15 16:17] VITALS: BMI 25.8
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
--- NOTE | 2018-07-18 05:10 | P.HPADDEND ---
H&P Addendum H&P Addendum Date: 07/18/18 Case re-scheduled from 07/17/18
[2018-07-18 12:49] VITALS: RESP 16; TEMP 97.6
[2018-07-18] MEDS ORDERED: LIDOCAINE 1% INJ 10MG/ML (20 ML MDV) ONE (14:22)
[2018-07-18] MEDS ORDERED: PROPOFOL 10 MG/ML 20 ML VIAL IV ONE (14:22)
--- NOTE | 2018-07-18 14:43 | P.PCN ---
Date of Procedure: 07/18/18 Description of Procedure: PREOPERATIVE DIAGNOSIS: Dysphagia. Gastrojejunal stricture with chronic ulcer without perforation Epigastric abdominal pain POSTOPERATIVE DIAGNOSIS: Dysphagia. Gastrojejunal stricture with chronic ulcer without perforation Epigastric abdominal pain OPERATION: Esophagogastrojejunoscopy with balloon dilatation from 9 to 12 mm. SURGEON: Rosa Maria Arrington MD ANESTHESIA: MAC. INDICATIONS: The patient is a 48-year-old female who presents with a history of dysphagia and gastrojejunal stricture with ulcers. Benefits and risks of the procedure were described. Informed consent was obtained. DESCRIPTION: The patient was brought into the endoscopy suite and laid in the left lateral decubitus position. After a timeout was confirmed, the procedure was initiated. An Olympus gastroscope was passed along the posterior oropharynx down to the distal esophagus where the squamocolumnar junction was unremarkable. The gastric pouch was entered. A gastrojejunal stricture of 9 mm was found as the adult gastroscope was 9.5 mm in size. A [employer] balloon dilator was placed through the scope. Final insufflation up to 12 mm was performed with a total of 2 minutes. The scope was advanced up to 60 cm from the incisors into the Cherise limb. The mucosa of the gastrojejunal anastomosis was intact. However moderate chronic gastrojejunal marginal ulcer was encountered. No full-thickness injury was encountered. The GI tract was desufflated. The patient tolerated the procedure well. FINDINGS: Squamocolumnar junction unremarkable at 40 cm. Stricture of approximately 9 mm encountered. Chronic gastrojejunal ulceration encountered. Successful balloon dilatation to 12 mm. Diaphragmatic hiatus at 40 cm. Gastric pouch 3 cm. RECOMMENDATIONS: Continue Carafate and omeprazole BID Plan - Discharge Summary New Discharge Prescriptions: No Action Loratadine [Claritin] 10 mg PO DAILY Multivitamin/Iron/Folic Acid [Centrum Women Tablet] 1 each PO DAILY Calcium Carb/Vitamin D3/Vit K1 [Citracal Soft Chew] 1 each PO DAILY Sucralfate [Carafate] 1 gm PO BID #480 ml Omeprazole 40 mg PO DAILY #90 capsule. Thiamine [Vitamin B-1] 200 mg PO DAILY Montelukast Chew [Singulair Chew] 10 mg PO DAILY Ergocalciferol (Vitamin D2) [Vitamin D2] 50,000 unit PO WEEKLY Discharge Medication List Calcium Carb/Vitamin D3/Vit K1 [Citracal Soft Chew] 1 each PO DAILY 04/29/18 [ History] Loratadine [Claritin] 10 mg PO DAILY 04/29/18 [History] Multivitamin/Iron/Folic Acid [Centrum Women Tablet] 1 each PO DAILY 04/29/18 [ History] Omeprazole 40 mg PO DAILY #90 capsule. 04/30/18 [Rx] Sucralfate [Carafate] 1 gm PO BID #480 ml 04/30/18 [Rx] Ergocalciferol (Vitamin D2) [Vitamin D2] 50,000 unit PO WEEKLY 07/15/18 [History ] Montelukast Chew [Singulair Chew] 10 mg PO DAILY 07/15/18 [History] Thiamine [Vitamin B-1] 200 mg PO DAILY 07/15/18 [History]
[2018-07-18 15:15] VITALS: BP 108/55; PULSE 64
== END 2018-07-18 15:35 | disposition home or self-care (01) ==
LOC: ORWHC2ENDO 12:11
PROVIDERS: ATTEND Surgery Plastic and Reconstructive Surgery
DX: K91.89 Other postprocedural complications and disorders of digestive system (principal); K28.9 Gastrojejunal ulcer, unspecified as acute or chronic, without hemorrhage or perforation; K21.9 Gastro-esophageal reflux disease without esophagitis; M19.90 Unspecified osteoarthritis, unspecified site; M41.9 Scoliosis, unspecified; M51.36 Other intervertebral disc degeneration, lumbar region; G62.9 Polyneuropathy, unspecified; Z98.84 Bariatric surgery status; Z87.891 Personal history of nicotine dependence; Z80.3 Family history of malignant neoplasm of breast; Z79.899 Other long term (current) drug therapy; Z88.5 Allergy status to narcotic agent; G47.33 Obstructive sleep apnea (adult) (pediatric); Z99.89 Dependence on other enabling machines and devices; Z96.89 Presence of other specified functional implants
CPT/HCPCS: 81025; 43245; J2001; J2704; C1726; 43249

== ENCOUNTER → 2018-08-06 | Outpatient (CLI) | payer MEDICARE, OTHER ==
[2018-08-06 16:38] VITALS: BP 108/71; PULSE 98; RESP 16; TEMP 98; BMI 26.0
--- NOTE | 2018-08-06 16:50 | P.PN ---
Subjective Progress Note Date: 08/06/18 DATE OF SERVICE: 08/06/2018 CHIEF COMPLAINT: Follow up gastric bypass. HISTORY OF PRESENT ILLNESS: Earline Bermeo is 48-year-old female who is status post gastric bypass on 02/11/2017. She is over 1 year out. Her upper endoscopy shows severe ulcer disease. Her abdominal pain and burning is better. At her height of 5-foot 5-3/4 inch-frame, she was 267 pounds. Her body mass index was 43.5. Today she comes in weighing 160 pounds from 171 pounds, 5 months ago. She has lost 11 pounds in 5 months. Her total weight loss is 107 pounds. Her body mass index is reduced from 43.5 to 26.0. Percent excess weight loss is 91 %. She is 11 pounds over weight. PHYSICAL EXAM: VITAL SIGNS: 5 feet 5-3/4 inch frame, 160 pounds. Body mass index of 26.0 Vital Signs Temp 98 F 08/06/18 16:30 Pulse 98 08/06/18 16:30 Resp 16 08/06/18 16:30 BP 108/71 08/06/18 16:30 Pulse Ox ABDOMEN: Soft, nondistended. Tender along epigastrium. GENERAL: Well-developed pleasant female in no acute distress. HEENT: No scleral icterus. Extraocular movements grossly intact. Moist buccal mucosa. NECK: Supple without lymphadenopathy. CHEST: Nonlabored respirations with equal respirations. CARDIOVASCULAR: Regular rate and rhythm. EXTREMITIES: No cyanosis, or edema. NEURO: No focal or lateralizing signs. Cranial nerves II through XII grossly within normal limits. PSYCH: Appropriate affect. Alert and oriented in person, place, and time. SKIN: Well perfused. Good skin turgor. ASSESSMENT: 1. Morbid obesity due to excess calories. 2. Body mass index 43.5 down to 27.8 3. Obstructive sleep apnea, now resolved. 4. Hypertensive heart disease, improved. 5. Renal insufficiency secondary to hypertensive disease, resolved. 6. History of tobacco use in remission. 7. Vitamin D deficiency. 8. History of chronic pain. 9. History of spine stimulator. 10. Status post Cherise-en-Y gastric bypass. 11. Right upper quadrant abdominal pain. 12. Chronic cholecystitis. 13. Dietary surveillance and counseling. 14. Headaches. 15. Panniculitis. 16. Gastroesophageal reflux disease 17. Tobacco abuse 18. Gastrojejunal ulcer PLAN: 1. Recommend antacid therapy including Carafate and Omeprazole 2. Repeat upper scope for 1st week of August, 4 weeks from now 4. Will need strict tobacco cessation to address gastrojejunal ulcer. Objective - Vital Signs Vital signs: Vital Signs Temp 98 F 08/06/18 16:30 Pulse 98 08/06/18 16:30 Resp 16 08/06/18 16:30 BP 108/71 08/06/18 16:30 Pulse Ox Intake & Output 08/05/18 08/06/18 08/06/18 18:59 06:59 18:59 Weight 72.575 kg - Labs CBC & Chem 7: 08/06/18 17:22 08/06/18 17:22
[2018-08-06 17:50] LABS: MCH 29.3 pg (25.0-35.0); MCHC 31.7 g/dL (31.0-37.0); MCV 92.5 fL (80.0-100.0); Mean Platelet Volume 6.4; Platelet Count 322 k/uL (150-450); RBC 4.11 m/uL (3.80-5.40); RDW 12.9 % (11.5-15.5); WBC 9.3 k/uL (3.8-10.6)
[2018-08-06 17:55] LABS: Partial Thromboplastin Time 24.8 sec (22.0-30.0); Prothrombin Time 10.3 sec (9.0-12.0)
[2018-08-07 04:23] LABS: Hemoglobin A1C 5.4 % (4.0-6.0)
[2018-08-07 05:07] LABS: Parathyroid Hormone Intact 45.3 pg/mL (14.0-72.0)
[2018-08-07 05:32] LABS: Albumin 4.7 g/dL (3.80-4.90); Albumin/Globulin Ratio 2.76 (1.20-2.10); Anion Gap 6.5 mmol/L (4.00-12.00); Calcium 9.6 mg/dL (8.7-10.3); Carbon Dioxide 28.5 mmol/L (21.6-31.8); Globulin 1.7 g/dL (1.6-3.3); Potassium 4.3 mmol/L (3.5-5.5); Total Bilirubin 0.2 mg/dL (0.3-1.2); Total Protein 6.4 g/dL (6.2-8.2)
[2018-08-07 05:33] LABS: Magnesium 1.9 mg/dL (1.5-2.4); Phosphorus 3.9 mg/dL (2.4-5.1)
[2018-08-07 06:19] LABS: Iron Saturation 12.31 (12.00-45.00)
[2018-08-07 06:29] LABS: Folate, Serum 16.8 ng/mL; Vitamin D 25 Hydroxy 114.3 ng/mL (30.0-100.0)
[2018-08-07 12:46] LABS: Zinc, Serum 57 ug/dL (60-130)
[2018-08-08 09:36] LABS: Vitamin A 65 ug/dL (38-106)
[2018-08-08 09:44] LABS: Vitamin B1 74 ug/L (38-122)
[2018-08-11 18:15] LABS: Selenium 67 mcg/L (63-160)
== END | disposition home or self-care (01) ==
LOC: BARWHC3 15:34
PROVIDERS: ATTEND Surgery Plastic and Reconstructive Surgery
DX: Z48.815 Encounter for surgical aftercare following surgery on the digestive system (principal); E66.01 Morbid (severe) obesity due to excess calories; I11.9 Hypertensive heart disease without heart failure; E55.9 Vitamin D deficiency, unspecified; R10.11 Right upper quadrant pain; K81.1 Chronic cholecystitis; R51 Headache; M79.3 Panniculitis, unspecified; K21.9 Gastro-esophageal reflux disease without esophagitis; K28.9 Gastrojejunal ulcer, unspecified as acute or chronic, without hemorrhage or perforation; G89.29 Other chronic pain; E21.1 Secondary hyperparathyroidism, not elsewhere classified; E89.1 Postprocedural hypoinsulinemia; D50.9 Iron deficiency anemia, unspecified; K90.9 Intestinal malabsorption, unspecified; K76.9 Liver disease, unspecified; N19 Unspecified kidney failure; K50.90 Crohn's disease, unspecified, without complications; Z71.3 Dietary counseling and surveillance; Z68.27 Body mass index [BMI] 27.0-27.9, adult; Z72.0 Tobacco use; Z98.84 Bariatric surgery status; Z98.890 Other specified postprocedural states
CPT/HCPCS: 84255; 84134; 84425; 80061; 80053; 82607; 82728; 82525; 82746; 83540; 83550; 83735; 84100; 84443; 84590; 84630; 85027; 85610; 85730; 82306; 83970; 83036; 36415; G0463; 99211

== ENCOUNTER → 2019-04-29 | Outpatient (CLI) | payer MEDICARE, OTHER ==
[2019-04-29 14:44] VITALS: BP 115/77; PULSE 64; RESP 16; TEMP 97.6; BMI 26.5
--- NOTE | 2019-04-29 15:00 | P.PN ---
Subjective Progress Note Date: 04/29/19 DATE OF SERVICE: 04/29/2019 CHIEF COMPLAINT: Follow up gastric bypass. HISTORY OF PRESENT ILLNESS: Earline Bermeo is 48-year-old female who is status post gastric bypass on 02/11/2017. She is over 2 years out. She reports no foods getting stuck. She reports burning sensation of her belly. She has history of gastric ulcers. She has lost over 100 pounds. She reports epigastric burning when she sleeps at night. At her height of 5-foot 5-3/4 inch-frame, she was 267 pounds. Her body mass index was 43.5. Today she comes in weighing 163 pounds from 160 pounds, 9 months ago. She has gained 3 pounds in 9 months. Her total weight loss is 104 pounds. Her body mass index is reduced from 43.5 to 26.5. Percent excess weight loss is 88 %. She is 14 pounds over weight. PAST MEDICAL HISTORY: 1. Morbid obesity due to excess calories, BMI 43.5 initial 2. Gastroesophageal reflux disease. 3. Sleep disorder. 4. Scoliosis. 5. Degenerative joint disease of lower back. 6. Bilateral carpal tunnel disease. 7. Depression. 8. Chronic pain syndrome. PAST SURGICAL HISTORY: 1. Surgical implant of spinal cord stimulator. 2. Sinus surgery. 3. Removal of a lipoma. 4. Left rotator cuff surgery. 5. Upper endoscopy. 6. Gastric bypass 7. Cholecystectomy MEDICATIONS: Home Medications Medication Instructions Recorded Confirmed Calcium Carb/Vitamin D3/Vit K1 2 each PO DAILY 04/29/18 06/03/19 [Citracal Soft Chew] Loratadine [Claritin] 10 mg PO DAILY PRN 04/29/18 06/03/19 Ergocalciferol (Vitamin D2) 50,000 unit PO WEEKLY 07/15/18 06/03/19 [Vitamin D2] Montelukast Chew [Singulair Chew] 10 mg PO DAILY PRN 07/15/18 06/03/19 DULoxetine HCL [Cymbalta] 20 mg PO DAILY 04/29/19 06/03/19 Alive Vitamin 2 tab PO DAILY 06/03/19 06/03/19 Magnesium Hydroxide [Milk of 400 mg PO DIRECTED PRN 06/03/19 06/03/19 Magnesia] Previous Rx's Medication Instructions Recorded Sucralfate [Carafate] 1 gm PO BID #480 ml 04/30/18 Pantoprazole [Protonix] 40 mg PO BID #60 tab 06/09/19 ALLERGIES: Allergies Allergy/AdvReac Type Severity Reaction Status Date / Time hydromorphone [From Dilaudid] AdvReac Nausea & Verified 06/08/19 10:22 Vomiting SOCIAL HISTORY: No active tobacco use. She does have a previous tobacco use. is at bedside. FAMILY HISTORY: Pertinent for morbid obesity. REVIEW OF SYSTEMS: CONSTITUTIONAL: At her height of 5-foot 5-3/4 inch-frame, she was 267 pounds. Her body mass index was 43.6. HEENT: No reports of troubles with vision, hearing, or dysphagia. ENDOCRINE: No reports of diabetes or thyroid disorder. CARDIOVASCULAR: History of hypertension now resolved. No reports of palpitations or recent heart attack. RESPIRATORY: History of obstructive sleep apnea; however, not currently treated. Denies recent pneumonia. GASTROINTESTINAL: No reports of dumping syndrome or diarrhea. Gastroesophageal reflux disease. MUSCULOSKELETAL: Has diffuse osteoarthritis including of the lower back. Has a pain stimulator as a result of lower back. . NEURO: No reports of stroke or seizure disorder. PSYCH: History of bipolar disorder including depression. HEMATOLOGIC: No reports of easy bruising or bleeding. SKIN: No skin cancer or rash. PHYSICAL EXAM: VITAL SIGNS: 5 feet 5-3/4 inch frame, 163 pounds. Body mass index of 26.5 Vital Signs Temp 97.6 F 04/29/19 14:35 Pulse 64 04/29/19 14:35 Resp 16 04/29/19 14:35 BP 115/77 04/29/19 14:35 Pulse Ox ABDOMEN: Soft, nondistended. No peritonitis. GENERAL: Well-developed pleasant female in no acute distress. HEENT: No scleral icterus. Extraocular movements grossly intact. Moist buccal mucosa. NECK: Supple without lymphadenopathy. CHEST: Nonlabored respirations with equal respirations. CARDIOVASCULAR: Regular rate and rhythm. EXTREMITIES: No cyanosis, or edema. NEURO: No focal or lateralizing signs. Cranial nerves II through XII grossly within normal limits. PSYCH: Appropriate affect. Alert and oriented in person, place, and time. SKIN: Well perfused. Good skin turgor. ASSESSMENT: 1. Morbid obesity due to excess calories. 2. Body mass index 43.5 down to 26.5 3. Obstructive sleep apnea, now resolved. 4. Hypertensive heart disease, improved. 5. Renal insufficiency secondary to hypertensive disease, resolved. 6. History of tobacco use in remission. 7. Vitamin D deficiency. 8. History of chronic pain. 9. History of spine stimulator. 10. Status post Cherise-en-Y gastric bypass. 13. Dietary surveillance and counseling. 14. Headaches. 15. Panniculitis. 16. Gastroesophageal reflux disease 17. Tobacco abuse 18. Gastrojejunal ulcer PLAN: 1. Recommend bariatric labs for nutritional deficiences. 2. She has history of severe stricture and recommend upper endoscopy. 3. Start carafate for history of chronic ulcers 4. She has history of tobacco use and exposure, where still avoidance is advised. Objective - Vital Signs Vital signs: Vital Signs Temp 97.6 F 04/29/19 14:35 Pulse 64 04/29/19 14:35 Resp 16 04/29/19 14:35 BP 115/77 04/29/19 14:35 Pulse Ox Intake & Output 04/28/19 04/29/19 04/29/19 18:59 06:59 18:59 Weight 73.936 kg
== END | disposition home or self-care (01) ==
LOC: BARWHC3 13:25
PROVIDERS: ATTEND Surgery Plastic and Reconstructive Surgery
DX: Z48.815 Encounter for surgical aftercare following surgery on the digestive system (principal); E66.01 Morbid (severe) obesity due to excess calories; I11.9 Hypertensive heart disease without heart failure; E55.9 Vitamin D deficiency, unspecified; G89.29 Other chronic pain; Z71.3 Dietary counseling and surveillance; R51 Headache; M79.3 Panniculitis, unspecified; K21.9 Gastro-esophageal reflux disease without esophagitis; K28.9 Gastrojejunal ulcer, unspecified as acute or chronic, without hemorrhage or perforation; F17.200 Nicotine dependence, unspecified, uncomplicated; Z68.26 Body mass index [BMI] 26.0-26.9, adult; Z98.84 Bariatric surgery status; Z98.890 Other specified postprocedural states; Z79.899 Other long term (current) drug therapy; Z88.5 Allergy status to narcotic agent
CPT/HCPCS: 99211

== ENCOUNTER 2019-06-08 10:06 | Inpatient (IN) | payer MEDICARE, OTHER ==
--- NOTE | 2019-06-07 15:53 | P.PN ---
Progress Note - Text Progress Note Date: 06/07/19 Message left on telephone regarding impending snowstorm tomorrow. Patient offered for rescheduling or start travel time earlier to make visit.
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
[~2019-06-08 10:06] MED LIST changes: -LACTATED RINGERS 1,000 ML IV SCH; +LIDOCAINE 1% 20 ML VIAL (10MG/ML) FOR IV START INTRADERMA PRN
[2019-06-08] MEDS: LACTATED RINGERS 1,000 ML IV SCH (10:38)
[2019-06-08] MEDS ORDERED: fentaNYL (PF) 50 MCG/ML 2 ML AMP ONE (10:58)
[2019-06-08] MEDS ORDERED: MIDAZOLAM 2 MG/2 ML VIAL ONE (10:58)
[2019-06-08] MEDS ORDERED: PROPOFOL 10 MG/ML 20 ML VIAL IV ONE (10:58)
[2019-06-08] MEDS ORDERED: NALOXONE 0.4 MG/ML 1 ML VIAL IV PRN (11:14)
[2019-06-08] MEDS ORDERED: ONDANSETRON 4 MG/2 ML VIAL IVP PRN (11:14)
[2019-06-08] MEDS ORDERED: ACETAMINOPHEN IV (For NPO) 1,000 MG in EMPTY BAG 1 BAG IVPB PRN ×2 (11:14→16:44)
[2019-06-08] MEDS ORDERED: IOPAMIDOL CONTRAST (ORAL USE) VIAL PO PRN (11:17)
--- NOTE | 2019-06-08 11:25 | P.PCN ---
Date of Procedure: 06/08/19 Description of Procedure: PREOPERATIVE DIAGNOSES: 1. Dysphagia 2. Epigastric abdominal pain 3. History of gastrojejunal ulcers POSTOPERATIVE DIAGNOSES: 1. Dysphagia 2. Epigastric abdominal pain 3. 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 Gastritis PROCEDURE PERFORMED: Esophagogastrojejunoscopy with cold forceps biopsies gastric pouch SURGEON: Rosa Maria Arrington MD ANESTHESIA: MAC. INDICATIONS: The patient is a 48-year-old female who presents with epigastric abdominal pain, dysphagia, history of gastrojejunal ulcers. she reports worsening abdominal pain including difficulty with tolerating foods and nausea with vomiting. Benefits and risks were described. Informed consent was obtained DESCRIPTION: Patient was brought to the endoscopy suite and laid in the left lateral decubitus position. After adequate IV sedation, a bite block was placed. An Olympus gastroscope was passed along the posterior oropharynx down to the distal esophagus and into the gastric pouch. A large chronic deep almost 1 cm ulcer with obstruction was found along the gas trojejunal anastomosis with risk of perforation with dilation. The scope was passed 50 cm from the incisors. Biopsies were taken along the gastric pouch for Helicobacter gastritis. The GI tract was desufflated. The patient tolerated the procedure well. FINDINGS: 1. Large acute on chronic gastrojejunal ulceration with obstruction 2. No foreign body found along the anastomosis. PLAN: 1. Immediate admission for gastric obstruction 2. Recommend CT of the abdomen and pelvis for further workup of gastric obstruction including bowel obstruction
[2019-06-08] MEDS ORDERED: PANTOPRAZOLE 40 MG/10 ML VIAL IV STA (11:28)
--- NOTE | 2019-06-08 15:19 | CT ---
EXAMINATION TYPE: CT abdomen pelvis w con DATE OF EXAM: 06/08/2019 COMPARISON: March 06, 2017 HISTORY: Gastric/bowel obstruction, gastric bypass CT DLP: 882 mGycm CONTRAST: CT scan of the abdomen and pelvis is performed with Oral Contrast and with IV Contrast, patient injec monisha with 100 mL of Isovue 300. FINDINGS: LUNG BASES-: No visible nodule. No infiltrate. LIVER/GB: No space occupying hepatic lesion. Biliary tree is of normal caliber. Mild hepatomegaly sug gested. The gallbladder is surgically absent. PANCREAS: No inflammation. No distinct mass. SPLEEN: Borderline splenomegaly with the maximal dimension of about 12.7 cm unchanged from prior stud y. No lesion seen. ADRENALS: No nodule. No thickening. KIDNEYS/BLADDER: No hydronephrosis. No nephrolithiasis. No distinct renal mass. Urinary bladder g rossly unremarkable. BOWEL: Normal appendix. Normal bowel caliber. No inflammation. Gastric bypass changes noted without visible without complicating factor at this time. Moderate fecal stasis identified. GENITAL ORGANS: The uterine endometrium is poorly defined with infiltrative appearance throughout th e uterus. Correlate for possible endometrial carcinoma. Consider direct visualization. No distinct ov israel or adnexal lesion. LYMPH NODES: No greater than 1cm abdominal or pelvic lymph nodes are appreciated. AORTA: No significant abnormality. OSSEOUS STRUCTURES: Grade 1 anterolisthesis OTHER: No significant additional abnormality is seen. IMPRESSION: 1. The uterine endometrium is poorly defined with infiltrative appearance throughout the uterus. Pastora elate for possible endometrial carcinoma. Consider direct visualization. 2. Hepatosplenomegaly unchanged from prior study. 3. Moderate fecal stasis.
[2019-06-08 15:29] LABS: Basophils % (A) 0 %; Eosinophils # (A) 0.3 k/uL (0-0.7); Eosinophils % (A) 4 %; HCT 37.4 % (34.0-46.0); HGB 12.3 gm/dL (11.4-16.0); Lymphocytes # (A) 4.4 k/uL (1.0-4.8); Lymphocytes % (A) 49 %; MCH 30.5 pg (25.0-35.0); MCHC 32.8 g/dL (31.0-37.0); MCV 92.9 fL (80.0-100.0); Mean Platelet Volume 5.8; Monocytes # (A) 0.4 k/uL (0-1.0); Monocytes % (A) 4 %; Neutrophils # (A) 3.7 k/uL (1.3-7.7); Neutrophils % (A) 40 %; Platelet Count 349 k/uL (150-450); RBC 4.02 m/uL (3.80-5.40); RDW 12.2 % (11.5-15.5); WBC 9.1 k/uL (3.8-10.6)
[2019-06-08 15:40] LABS: ALT 27 U/L (9-52); AST 34 U/L (14-36); African American GFR (CKD) >90 (>60 ml/min/1.73 sqM); Albumin 4.1 g/dL (3.5-5.0); Alkaline Phosphatase 81 U/L (38-126); Anion Gap 6 mmol/L; Blood Urea Nitrogen 12 mg/dL (7-17); Calcium 9.7 mg/dL (8.4-10.2); Carbon Dioxide 32 mmol/L (22-30); Chloride 101 mmol/L (98-107); Glucose 88 mg/dL (74-99); Non-African American GFR(CKD) >90 (>60 ml/min/1.73 sqM); Sodium 139 mmol/L (137-145); Total Bilirubin 0.3 mg/dL (0.2-1.3); Total Protein 6.9 g/dL (6.3-8.2)
[2019-06-08] MEDS: SUCRALFATE 1 GM TAB PO SCH (20:04)
[2019-06-08] MEDS: PANTOPRAZOLE 40 MG/10 ML VIAL IV SCH (20:04)
[2019-06-08 21:09] VITALS: RESP 18
[2019-06-09] MEDS: LACTATED RINGERS 1,000 ML IV SCH (05:19)
[2019-06-09 08:16] VITALS: BP 115/81; PULSE 61; TEMP 97.7
[2019-06-09] MEDS: SUCRALFATE 1 GM TAB PO SCH (08:44)
[2019-06-09] MEDS: PANTOPRAZOLE 40 MG/10 ML VIAL IV SCH (08:44)
[2019-06-09] MEDS ORDERED: DULoxetine HCL 20 MG CAPSULE.DR PO SCH (09:00)
[2019-06-09] MEDS ORDERED: ACETAMINOPHEN TAB 325 MG TAB PO PRN (10:29)
--- NOTE | 2019-06-09 12:01 | P.DS ---
Providers Date of admission: 06/08/19 11:30 Expected date of discharge: 06/09/19 Attending physician: Rosa Maria Arrington Primary care physician: Stated None Hospital Course: 48-year-old female who has a history of gastroesophageal reflux disease. She underwent EGD revealing large acute on chronic gastrojejunal ulceration with obstruction. Patient was admitted to hospital and CT abdomen and pelvis was obtained which did not reveal evidence of obstruction. Patient has been tolerating full liquid diet. Denies nausea or vomiting. Patient is stable for discharge home today per Dr. Arrington. She is to continue her Carafate twice a day. Patient also prescribed Protonix 40 mg twice a day at the time of discharge. Please see EMR for further hospital course details. Discharge diagnosis 1. GERD, status post EGD revealing large acute on chronic gastrojejunal ulceration with obstruction Nurse practitioner note has been reviewed by physician. Signing provider agrees with the documented findings, assessment, and plan of care. Patient Condition at Discharge: Stable Plan - Discharge Summary Discharge Rx Participant: No New Discharge Prescriptions: New Pantoprazole [Protonix] 40 mg PO BID #60 tab Continue Sucralfate [Carafate] 1 gm PO BID #480 ml Discontinued Omeprazole [PriLOSEC] 40 mg PO DAILY No Action Loratadine [Claritin] 10 mg PO DAILY PRN PRN Reason: Allergic Reaction Calcium Carb/Vitamin D3/Vit K1 [Citracal Soft Chew] 2 each PO DAILY Montelukast Chew [Singulair Chew] 10 mg PO DAILY PRN PRN Reason: Allergic Reaction Ergocalciferol (Vitamin D2) [Vitamin D2] 50,000 unit PO WEEKLY DULoxetine HCL [Cymbalta] 20 mg PO DAILY Alive Vitamin 2 tab PO DAILY Magnesium Hydroxide [Milk of Magnesia] 400 mg PO DIRECTED PRN PRN Reason: Constipation Discharge Medication List Calcium Carb/Vitamin D3/Vit K1 [Citracal Soft Chew] 2 each PO DAILY 04/29/18 [History] Loratadine [Claritin] 10 mg PO DAILY PRN 04/29/18 [History] Sucralfate [Carafate] 1 gm PO BID #480 ml 04/30/18 [Rx] Ergocalciferol (Vitamin D2) [Vitamin D2] 50,000 unit PO WEEKLY 07/15/18 [History] Montelukast Chew [Singulair Chew] 10 mg PO DAILY PRN 07/15/18 [History] DULoxetine HCL [Cymbalta] 20 mg PO DAILY 04/29/19 [History] Alive Vitamin 2 tab PO DAILY 06/03/19 [History] Magnesium Hydroxide [Milk of Magnesia] 400 mg PO DIRECTED PRN 06/03/19 [History] Pantoprazole [Protonix] 40 mg PO BID #60 tab 06/09/19 [Rx] Follow up Appointment(s)/Referral(s): [facility] [NON-STAFF] - 07/09/19 10:20 am Patient Instructions/Handouts: *Surgery [facility] - (Anesthesia) Endoscopy Discharge Instructions, Peptic Ulcer (DC), Upper Endoscopy (DC)
[2019-06-09 13:50] VITALS: BMI 25.9
--- NOTE | 2019-06-16 07:49 | CDI ---
Documentation Clarification Form Date: 06/16/2019 7:35:16 AM From: Janelle Reyes Phone: If you have a question about this query, please contact Lillie Mcneill Party Plan Sales Host/Hostess at [phone] between 8am and 5pm Admit Date: 06/08/2019 11:30:00 AM Patient Name: Earline Bermeo Visit Number: [id number] Discharge Date: 06/09/2019 3:16:00 PM ATTENTION: The Clinical Documentation Specialists (CDI) and [facility] Coding Staff appreciate your assistance in clarifying documentation. Please respond to the clarification below the line at the bottom and electronically sign. The CDI & [facility] Coding staff will review the response and follow-up if needed. Please note: Queries are made part of the Legal Health Record. If you have any questions, please contact the author of this message via ITS. Dr. Rosa Maria Arrington Acute and chronic gastrojejunal ulcer with obstruction is documented in H and P and DCS. Patient has GERD. Patient is status post bariatric procedure and ulcer is at anastomosis. Please clarify if obstruction and ulcer are a result of bariatric surgery. Patients Admitting Diagnosis: Epigastric abdominal pain Post-Operative Diagnosis: large acute on chroinic gastrojejunal ulceration with obstruction Procedure performed: EGD with biopsy gastric pouch status post bariatric surgery History/Risk Factors: bariatric surgery anastomosis GERD Treatment: Carafate BID and Protonix 40 mg BID In order to accurately reflect this patients severity of illness, please clarify if the post-operative diagnosis is: Acute and chronic gastrojejunal ulcer with obstruction a result of bariatric surgery Acute and chronic gastro jejunal ulcer with obstruction not a result of bariatric surgery Other reason Please explain Acute and chronic gastro jejunal ulcer with obstruction not a result of bariatric surgery Patient history tobacco abuse including second hand exposure increases risk for ulcers 06/18/19 @17:13 CARLOS ENRIQUED
== END 2019-06-09 15:16 | disposition home or self-care (01) | DRG 381 ==
LOC: ORWHC2ENDO 10:06 → 4SSUR 11:30
PROVIDERS: ADMIT Surgery Plastic and Reconstructive Surgery; ATTEND Surgery Plastic and Reconstructive Surgery
PROC: 0DB68ZX Excision of Stomach, Via Natural or Artificial Opening Endoscopic, Diagnostic (ICD-10-PCS; principal; 2019-06-08 11:15)
DX: K28.3 Acute gastrojejunal ulcer without hemorrhage or perforation (principal); K56.699 Other intestinal obstruction unspecified as to partial versus complete obstruction; Y83.8 Other surgical procedures as the cause of abnormal reaction of the patient, or of later complication, without mention of misadventure at the time of the procedure; K28.7 Chronic gastrojejunal ulcer without hemorrhage or perforation; Z98.84 Bariatric surgery status; F32.9 Major depressive disorder, single episode, unspecified; F41.9 Anxiety disorder, unspecified; K21.9 Gastro-esophageal reflux disease without esophagitis; K29.70 Gastritis, unspecified, without bleeding; M41.9 Scoliosis, unspecified; R13.10 Dysphagia, unspecified; Z79.899 Other long term (current) drug therapy; Z80.3 Family history of malignant neoplasm of breast; Z87.11 Personal history of peptic ulcer disease; Z87.891 Personal history of nicotine dependence; M19.90 Unspecified osteoarthritis, unspecified site; Z88.5 Allergy status to narcotic agent; G47.30 Sleep apnea, unspecified; Z99.89 Dependence on other enabling machines and devices
CPT/HCPCS: 43239; 74177; 80053; 81025; 85025; 88305

== ENCOUNTER 2021-03-27 07:07 | Day surgery (SDC) | payer MEDICARE ==
[2021-03-23 11:34] VITALS: BMI 25.0
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
[~2021-03-27 07:07] MED LIST changes: +LACTATED RINGERS 1,000 ML IV SCH; -LIDOCAINE 1% 20 ML VIAL (10MG/ML) FOR IV START INTRADERMA PRN; +fentaNYL (PF) 50 MCG/ML 2 ML AMP IV PRN
[2021-03-27 07:30] VITALS: RESP 16; TEMP 97
[2021-03-27] MEDS ORDERED: PROPOFOL 10 MG/ML 20 ML VIAL IV ONE (07:41)
--- NOTE | 2021-03-27 07:56 | P.PCN ---
Date of Procedure: 03/27/21 Description of Procedure: PREOPERATIVE DIAGNOSIS: Dysphagia. Epigastric abdominal pain Tobacco abuse disorder Nausea with vomiting. POSTOPERATIVE DIAGNOSIS: Dysphagia. Epigastric abdominal pain Tobacco abuse disorder Gastrojejunal stricture with chronic ulcer without perforation OPERATION: Esophagogastrojejunoscopy with balloon dilatation from 12 to 18 mm. SURGEON: Rosa Maria Arrington MD ANESTHESIA: MAC. INDICATIONS: The patient is a 50-year-old female who presents with a history of dysphagia and epigastric abdominal pain. Benefits and risks of the procedure were described. Informed consent was obtained. DESCRIPTION: The patient was brought into the endoscopy suite and laid in the left lateral decubitus position. After a timeout was confirmed, the procedure was initiated. An Olympus gastroscope was passed along the posterior oropharynx down to the distal esophagus where the squamocolumnar junction was unremarkable. The gastric pouch was entered. A gastrojejunal stricture of 12 mm was found as the adult gastroscope was 9.5 mm in size. A [email or web address] balloon dilator was placed through the scope. Final insufflation up to 18 mm was performed with a total of 2 minutes. The scope was advanced up to 60 cm from the incisors into the Cherise limb. The mucosa of the gastrojejunal anastomosis was intact. However chronic gastrojejunal marginal ulcer was encountered. No full-thickness injury was encountered. The GI tract was desufflated. The patient tolerated the procedure well. FINDINGS: Squamocolumnar junction unremarkable at 40 cm. Stricture of approximately 12 mm encountered. Chronic gastrojejunal ulceration encountered. Successful balloon dilatation to 18 mm. Gastric pouch 3 cm. RECOMMENDATIONS: Continue combined therapy of Carafate and omeprazole of at least 4 weeks. Plan - Discharge Summary Discharge Rx Participant: No New Discharge Prescriptions: Continue Loratadine [Claritin] 10 mg PO DAILY PRN PRN Reason: Allergic Reaction Calcium Carb/Vitamin D3/Vit K1 [Citracal-D3 500 mg Soft Chew] 2 each PO DAILY Sucralfate [Carafate] 1 gm PO BID #480 ml Montelukast Chew [Singulair chew] 10 mg PO DAILY PRN PRN Reason: Allergic Reaction Ergocalciferol (Vitamin D2) [Vitamin D2] 50,000 unit PO WEEKLY Alive Vitamin 2 tab PO DAILY Magnesium Hydroxide [Milk of Magnesia] 400 mg PO DIRECTED PRN PRN Reason: Constipation Pantoprazole [Protonix] 40 mg PO BID #60 tab Discharge Medication List Calcium Carb/Vitamin D3/Vit K1 [Citracal-D3 500 mg Soft Chew] 2 each PO DAILY 04/29/18 [History] Loratadine [Claritin] 10 mg PO DAILY PRN 04/29/18 [History] Sucralfate [Carafate] 1 gm PO BID #480 ml 04/30/18 [Rx] Ergocalciferol (Vitamin D2) [Vitamin D2] 50,000 unit PO WEEKLY 07/15/18 [History] Montelukast Chew [Singulair chew] 10 mg PO DAILY PRN 07/15/18 [History] Alive Vitamin 2 tab PO DAILY 06/03/19 [History] Magnesium Hydroxide [Milk of Magnesia] 400 mg PO DIRECTED PRN 06/03/19 [History] Pantoprazole [Protonix] 40 mg PO BID #60 tab 06/09/19 [Rx] Follow up Appointment(s)/Referral(s): [facility] [NON-STAFF] - 04/12/21 Patient Instructions/Handouts: Peptic Ulcer (DC), Diet for Stomach Ulcers and Gastritis (ED), How to Stop Smoking (DC) Discharge Disposition: HOME SELF-CARE
[2021-03-27 08:26] VITALS: BP 139/47; PULSE 61
== END 2021-03-27 08:47 | disposition home or self-care (01) ==
LOC: ORWHC2ENDO 07:07
PROVIDERS: ATTEND Surgery Plastic and Reconstructive Surgery
DX: R10.13 Epigastric pain (principal); R11.2 Nausea with vomiting, unspecified; R13.10 Dysphagia, unspecified; Z72.0 Tobacco use; K21.9 Gastro-esophageal reflux disease without esophagitis; G47.33 Obstructive sleep apnea (adult) (pediatric); M19.90 Unspecified osteoarthritis, unspecified site; Z87.11 Personal history of peptic ulcer disease; K28.9 Gastrojejunal ulcer, unspecified as acute or chronic, without hemorrhage or perforation
CPT/HCPCS: 43245; J2704; C1726

== ENCOUNTER 2022-05-16 08:17 | Day surgery (SDC) | payer MEDICARE ==
[2022-05-15 11:03] VITALS: BMI 25.4
[~2022-05-16 08:17] MED LIST changes: -fentaNYL (PF) 50 MCG/ML 2 ML AMP IV PRN
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
[2022-05-16 08:40] VITALS: TEMP 97.5
[2022-05-16] MEDS ORDERED: LACTATED RINGERS 1,000 ML IV ONE (08:47)
[2022-05-16] MEDS ORDERED: PROPOFOL 10 MG/ML 20 ML VIAL IV ONE (08:50)
--- NOTE | 2022-05-16 09:18 | P.PCN ---
Date of Procedure: 05/16/22 Description of Procedure: PREOPERATIVE DIAGNOSIS: Colonoscopy screening POSTOPERATIVE DIAGNOSIS: Tubular adenoma sigmoid colon OPERATION: Colonoscopy to the ileocecal valve and appendiceal orifice, cecum Colonoscopy with cold forceps biopsy SURGEON: Rosa Maria Arrington MD. ANESTHESIA: MAC. INDICATIONS: The patient is an 51-year-old female who presents colonoscopy screening. Benefits and risks were described and informed consent was obtained. DESCRIPTION OF PROCEDURE: The patient had undergone MiraLAX Gatorade prep. The patient had been brought into the operating room and laid in the left lateral decubitus position. After adequate intravenous sedation, the rectum was examined with 2% lidocaine jelly. No external hemorrhoids were encountered. The rectal tone was within normal limits. No lesions were palpated in the rectal vault. An Olympus colonoscope was advanced until the cecum, ileocecal valve and appendiceal orifice were clearly viewed. The prep was fair. No sigmoid diverticulosis was encountered. Colonic polyps were found and removed. No evidence of focal colitis was found. Ret roflexion of the scope demonstrated grade 2 internal hemorrhoids without active bleeding or inflammation. The colon was desufflated. The patient had tolerated the procedure well. Withdrawal time was over 6 minutes. FINDINGS: Aronchick preparation quality scale 2+ (1-5) Internal hemorrhoids, grade 1 No external hemorrhoids No arteriovenous malformations. No sigmoid diverticulosis Removal of 2 polyps: - Cold forceps biopsy at 15 cm from the anal verge 2, 4 to 5 mm polyps, sigmoid colon. No focal colitis. RECOMMENDATIONS: Repeat colonoscopy 3 years2024 Plan - Discharge Summary Discharge Rx Participant: No New Discharge Prescriptions: Continue Sucralfate [Carafate] 1 gm PO BID #480 ml Pantoprazole [Protonix] 40 mg PO BID #60 tab Discharge Medication List Sucralfate [Carafate] 1 gm PO BID #480 ml 04/30/18 [Rx] Pantoprazole [Protonix] 40 mg PO BID #60 tab 06/09/19 [Rx] Follow up Appointment(s)/Referral(s): Rosa Maria Arrington MD [STAFF PHYSICIAN] - As Needed Patient Instructions/Handouts: Colorectal Polyps (GEN), [facility] Endoscopy Discharge Instructions, Colonoscopy (DC) Activity/Diet/Wound Care/Special Instructions: Repeat colonoscopy in 3 years2024 Discharge Disposition: HOME SELF-CARE
[2022-05-16 09:35] VITALS: BP 117/75; PULSE 66; RESP 20
== END 2022-05-16 09:51 | disposition home or self-care (01) ==
LOC: ORWHC2ENDO 08:17
PROVIDERS: ATTEND Surgery Plastic and Reconstructive Surgery
DX: Z12.11 Encounter for screening for malignant neoplasm of colon (principal); K63.5 Polyp of colon; K64.0 First degree hemorrhoids; K21.9 Gastro-esophageal reflux disease without esophagitis; M19.90 Unspecified osteoarthritis, unspecified site; G47.33 Obstructive sleep apnea (adult) (pediatric); M79.9 Soft tissue disorder, unspecified; M41.9 Scoliosis, unspecified; M50.30 Other cervical disc degeneration, unspecified cervical region; G62.9 Polyneuropathy, unspecified; F17.200 Nicotine dependence, unspecified, uncomplicated; Z98.84 Bariatric surgery status; Z98.890 Other specified postprocedural states; Z90.49 Acquired absence of other specified parts of digestive tract; Z87.11 Personal history of peptic ulcer disease; Z80.3 Family history of malignant neoplasm of breast; Z88.5 Allergy status to narcotic agent; Z99.89 Dependence on other enabling machines and devices; Z79.899 Other long term (current) drug therapy; Z79.1 Long term (current) use of non-steroidal anti-inflammatories (NSAID); T75.3XXD Motion sickness, subsequent encounter
CPT/HCPCS: 88305; 45380; J2704

== ENCOUNTER → 2022-12-12 | Outpatient (CLI) | payer MEDICARE ==
[2022-12-12 17:24] LABS: INR 0.9 (<1.2); Partial Thromboplastin Time 22.8 sec (22.0-30.0); Prothrombin Time 9.8 sec (9.0-12.0)
[2022-12-12 19:57] LABS: HCT 36.5 % (37.2-46.3); HGB 10.6 g/dL (12.0-15.0); MCH 24.8 pg (27.0-32.0); MCV 85.3 fL (80.0-97.0); Mean Platelet Volume 9.6 fL (9.5-12.2); NRBC Per 100 WBC 0 /100 WBCS (0.0-0.0); Platelet Count 356 X 10*3/uL (140-440); RBC 4.28 X 10*6/uL (4.10-5.20); RDW 14.4 % (11.5-14.5); WBC 7.65 X 10*3/uL (4.50-10.00)
[2022-12-12 20:28] LABS: Chol/HDL Ratio 2.21 Ratio; LDL Cholesterol,Calculated 71.8 mg/dL (0.0-131.0)
[2022-12-13 00:20] LABS: % Iron Saturation 6.13 (12.00-45.00); ALT 14 U/L (8-44); AST 23 U/L (13-35); African American GFR (CKD) 97.6 (60.0-200.0); Albumin 4.6 g/dL (3.8-4.9); Albumin/Globulin Ratio 2.02 (1.60-3.17); Alkaline Phosphatase 95 U/L (41-126); BUN/Creat Ratio 23.98 Ratio (12.00-20.00); Blood Urea Nitrogen 19.4 mg/dL (9.0-27.0); Calcium 9.5 mg/dL (8.7-10.3); Carbon Dioxide 23.3 mmol/L (20.0-27.5); Chloride 103 mmol/L (96-109); Ferritin 7.3 ng/mL (10.0-291.0); Globulin 2.3 g/dL (1.6-3.3); Glucose 87 mg/dL (70-110); Iron 33 ug/dL (50-170); Magnesium 2.1 mg/dL (1.5-2.4); Non-African American GFR(CKD) 84.2 (60.0-200.0); Phosphorus 4.1 mg/dL (2.4-5.1); Potassium 4.4 mmol/L (3.5-5.5); Sodium 141 mmol/L (135-145); Total Iron Binding Capacity 533 ug/dL (228-460); Total Protein 6.8 g/dL (6.2-8.2)
[2022-12-13 14:16] LABS: Zinc, Serum 67 ug/dL (60-130)
[2022-12-14 07:54] LABS: Vit B1(Thiamine) 45 ug/L (38-122)
[2022-12-14 09:06] LABS: Vitamin A 59 ug/dL (38-106)
== END | disposition home or self-care (01) ==
LOC: LABPAT 15:14
PROVIDERS: ATTEND Surgery Plastic and Reconstructive Surgery
DX: E66.01 Morbid (severe) obesity due to excess calories (principal); E89.1 Postprocedural hypoinsulinemia; D50.8 Other iron deficiency anemias; K91.2 Postsurgical malabsorption, not elsewhere classified; E44.0 Moderate protein-calorie malnutrition; E44.1 Mild protein-calorie malnutrition; E45 Retarded development following protein-calorie malnutrition; E46 Unspecified protein-calorie malnutrition; E55.9 Vitamin D deficiency, unspecified; K74.1 Hepatic sclerosis; N19 Unspecified kidney failure; T56.894A Toxic effect of other metals, undetermined, initial encounter; K50.90 Crohn's disease, unspecified, without complications
CPT/HCPCS: 80053; 80061; 82306; 82525; 82607; 82728; 82746; 83036; 83540; 83550; 83735; 83970; 84100; 84134; 84255; 84425; 84443; 84590; 84630; 85027; 85610; 85730

== ENCOUNTER → 2022-12-12 | Outpatient (CLI) | payer MEDICARE ==
[2022-12-12 13:39] VITALS: BP 138/90; PULSE 71; TEMP 97.6; BMI 28.6
--- NOTE | 2022-12-12 15:07 | P.BASOAP ---
Subjective Progress Note Date: 12/12/22 She has epigastric pain. She had a back pain/battery changed.Recommend labs and urine. High risk of rupture or her stomach with gastric bypass. SHe is smoking THC. Recommend upper endoscopy. Objective - Vital Signs Vital signs: Vital Signs Temp 97.6 F 12/12/22 13:35 Pulse 71 12/12/22 13:35 Resp BP 138/90 12/12/22 13:35 Pulse Ox FiO2 Intake & Output 12/11/22 12/12/22 12/12/22 18:59 06:59 18:59 Weight 79.832 kg Assessment/Plan Plan: Date: 12/12/22 Initial Weight: 121.88 kg Initial BMI: 43.7 Current Weight: 79.832 kg Current BMI: 28.6 Type of Surgery: Total Volume in Band: Previous Volume: Volume Removed: Volume Added: Band Size:
== END ==
LOC: BARWHC3 13:20
PROVIDERS: ATTEND Surgery Plastic and Reconstructive Surgery
DX: E66.01 Morbid (severe) obesity due to excess calories (principal); Z68.28 Body mass index [BMI] 28.0-28.9, adult; Z88.5 Allergy status to narcotic agent; Z87.891 Personal history of nicotine dependence
CPT/HCPCS: 99211

== ENCOUNTER 2022-12-17 07:10 | Day surgery (SDC) | payer MEDICARE ==
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
[2022-12-17] MEDS ORDERED: LIDOCAINE 1% (10MG/ML) FOR IV START INTRADERMA PRN (07:49)
[2022-12-17] MEDS ORDERED: LACTATED RINGERS 1,000 ML IV SCH (07:49)
[2022-12-17 08:03] VITALS: RESP 16; TEMP 97
[2022-12-17] MEDS ORDERED: PROPOFOL 10 MG/ML 20 ML VIAL IV ONE (08:18)
[2022-12-17] MEDS ORDERED: LIDOCAINE 2% INJ 20 MG/ML (2 ML VIAL) ONE (08:18)
--- NOTE | 2022-12-17 08:41 | P.PCN ---
Date of Procedure: 12/17/22 Description of Procedure: PREOPERATIVE DIAGNOSIS: Dysphagia. Personal history gastrojejunal stricture and ulcers Tobacco abuse disorder POSTOPERATIVE DIAGNOSIS: Dysphagia. Gastrojejunal stricture with chronic ulcer without perforation Diaphragmatic hiatal hernia OPERATION: Esophagogastrojejunoscopy with balloon dilatation from 10 to 18 mm. SURGEON: Rosa Maria Arrington MD ANESTHESIA: MAC. INDICATIONS: The patient is a 52-year-old female who presents with a history of dysphagia, gastric bypass including tobacco abuse disorder. Ulcers. Benefits and risks of the procedure were described. Informed consent was obtained. DESCRIPTION: The patient was brought into the endoscopy suite and laid in the left lateral decubitus position. After a timeout was confirmed, the procedure was initiated. An Olympus gastroscope was passed along the posterior oropharynx down to the distal esophagus where the squamocolumnar junction was unremarkable. The gastric pouch was entered. A gastrojejunal stricture of 10 mm was found as the adult gastroscope was 9.5 mm in size. A [employer] balloon dilator was placed through the scope. Final insufflation up to 18 mm was performed with a total of 2 minutes. The scope was advanced up to 60 cm from the incisors into the Cherise limb. The mucosa of the gastrojejunal anastomosis was intact. However chronic gastrojejunal marginal ulcer was encountered. No full-thickness injury was encountered. The GI tract was desufflated. The patient tolerated the proce dure well. FINDINGS: Squamocolumnar junction unremarkable at 37 cm. Stricture of approximately 10 mm encountered. Chronic gastrojejunal ulceration encountered. Successful balloon dilatation to 20 mm. Diaphragmatic hiatus at 40 cm. Hiatal hernia, 3 cm Gastric pouch 8 cm RECOMMENDATIONS: Strict tobacco cessation and counseling advised due to chronic ulcerations Continue Protonix and Carafate Plan - Discharge Summary Discharge Rx Participant: No New Discharge Prescriptions: Continue Sucralfate [Carafate] 1 gm PO BID #480 ml Pantoprazole [Protonix] 40 mg PO BID #60 tab Discharge Medication List Sucralfate [Carafate] 1 gm PO BID #480 ml 04/30/18 [Rx] Pantoprazole [Protonix] 40 mg PO BID #60 tab 06/09/19 [Rx] [facility] [place] [facility] [place] [facility] Patient Instructions/Handouts: How to Stop Smoking (DC), Peptic Ulcer (GEN), Esophageal Dilation (GEN) Discharge Disposition: HOME SELF-CARE
[2022-12-17 08:59] VITALS: BP 113/77; PULSE 56
== END 2022-12-17 09:26 | disposition home or self-care (01) ==
LOC: ORWHC2ENDO 07:10
PROVIDERS: ATTEND Surgery Plastic and Reconstructive Surgery
DX: K29.50 Unspecified chronic gastritis without bleeding (principal); K56.699 Other intestinal obstruction unspecified as to partial versus complete obstruction; K21.9 Gastro-esophageal reflux disease without esophagitis; K44.9 Diaphragmatic hernia without obstruction or gangrene; M19.90 Unspecified osteoarthritis, unspecified site; G47.33 Obstructive sleep apnea (adult) (pediatric); M41.9 Scoliosis, unspecified; F17.200 Nicotine dependence, unspecified, uncomplicated; Z87.11 Personal history of peptic ulcer disease; Z99.89 Dependence on other enabling machines and devices; Z98.890 Other specified postprocedural states; Z98.84 Bariatric surgery status; Z90.49 Acquired absence of other specified parts of digestive tract; Z80.3 Family history of malignant neoplasm of breast; Z79.899 Other long term (current) drug therapy; Z88.5 Allergy status to narcotic agent
CPT/HCPCS: 88305; 43239; 43245; J2704; J2001; C1726

== ENCOUNTER → 2024-09-30 | Outpatient (CLI) | payer BC ==
[2024-09-30 14:58] VITALS: BP 133/84; PULSE 69; RESP 16; TEMP 98
[2024-09-30 14:59] VITALS: BMI 28.4
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
== END ==
LOC: BARWHC3 14:44
PROVIDERS: ATTEND Surgery Plastic and Reconstructive Surgery
DX: E66.01 Morbid (severe) obesity due to excess calories (principal); I11.9 Hypertensive heart disease without heart failure; E55.9 Vitamin D deficiency, unspecified; G89.29 Other chronic pain; R51.9 Headache, unspecified; M79.3 Panniculitis, unspecified; K21.9 Gastro-esophageal reflux disease without esophagitis; Z71.3 Dietary counseling and surveillance; Z98.84 Bariatric surgery status; Z68.41 Body mass index [BMI] 40.0-44.9, adult; Z87.891 Personal history of nicotine dependence; Z88.5 Allergy status to narcotic agent; Z86.69 Personal history of other diseases of the nervous system and sense organs
CPT/HCPCS: 99211